=== PATIENT | male | born 1980 | race Two or more races ===

== ENCOUNTER 2016-05-08 13:43 | Emergency (ER) | payer OTHER, SELFPAY ==
[2016-05-08 13:54] VITALS: BP 133/95
--- NOTE | 2016-05-08 16:50 | EDM.PDOC ---
ED HISTORY OF PRESENT ILLNESS - General Chief Complaint: Cardiovascular Problem Stated Complaint: CHEST PAIN/ L ARM NUMB Time Seen by Provider: 05/08/16 14:02 Source of Information: Reports: Patient, RN notes reviewed - History of Present Illness INITIAL COMMENTS - FREE TEXT/NARRATIVE: 35-year-old male comes in with intermittent chest pain for the past week. He states he's been having frequent episodes for about a week. He was seen here in the ED about this 4 days ago for similar symptoms. That time he was also having palpitations and dizziness. Today it has been more of an ache of the anterior chest with some radiation to the base of his neck. He has felt lightheaded and dizzy intermittently today. He states he did wear a Holter monitor back in March a couple of months ago. This understanding that checked out okay. He denies history for hypertension diabetes or other known major medical problems. Earlier today he did have some discomfort with deep breathing. It is no better. He has not been coughing any more than usual. No fever chills nausea vomiting diaphoresis or other unusual symptomatology. - Related Data Allergies/ADRs: Allergies Allergy/AdvReac Type Severity Reaction Status Date / Time No Known Allergies Allergy Verified 04/12/16 12:23 Home Meds: Home Meds Metoprolol Succinate [Toprol XL] 25 mg PO DAILY #30 tab.er 04/12/16 [Rx] LORazepam [Ativan] 0.5 mg PO TID PRN #30 tablet 05/05/16 [Rx] Past Medical History - Past Health History Medical/Surgical History: Denies Medical/Surgical History Cardiovascular History: Reports: Hypertension Other Cardiovascular History: taking metoprolol Psychiatric History: Reports: Depression Social & Family History - Family History Family Medical History: Noncontributory - Tobacco Use Smoking Status *Q: Never Smoker Second Hand Smoke Exposure: No - Caffeine Use Caffeine Use: Reports: None - Recreational Drug Use Recreational Drug Use: No ED ROS GENERAL - Review of Systems Review Of Systems: See Below Constitutional: Denies: fever, chills, diaphoresis HEENT: Reports: No symptoms Respiratory: Reports: pleuritic chest pain (gone). Denies: shortness of breath , wheezing Cardiovascular: Reports: Chest pain (now better), Lightheadedness (mild) GI/Abdominal: Denies: Abdominal pain, Nausea, Vomiting Musculoskeletal: Reports: neck pain (chest pain radiating to the base of his neck). Denies: shoulder pain Skin: Denies: rash Neurological: Reports: dizziness (gone), numbness (left arm, gone) ED EXAM, GENERAL - Physical Exam Exam: See Below General Appearance: alert, anxious (mild) Eye Exam: bilateral eye: PERRL Nose: normal inspection Throat/Mouth: Normal inspection, Normal oropharynx Head: atraumatic. No: facial swelling Neck: supple, full range of motion Respiratory/Chest: no respiratory distress, lungs clear, normal breath sounds. No: rhonchi, wheezing, stridor Cardiovascular: regular rate, rhythm GI/Abdominal: soft, non tender Extremities: normal inspection. No: pedal edema, leg pain Neurological: alert, oriented, no motor/sensory deficits Skin Exam: Warm, Dry, Normal color EKG INTERPRETATION EKG Date: 05/08/16 Rhythm: NSR [place]: normal QRS: normal ST-T: elevated (slight, probable early repolarization) QT: normal Course - Vital Signs Last Recorded V/S: Last Vital Signs Temp 99.5 F 05/08/16 13:50 Pulse 82 05/08/16 13:50 Resp 19 05/08/16 13:50 BP 133/95 H 05/08/16 13:50 Pulse Ox 97 05/08/16 13:50 - Orders/Labs/Meds Orders: Active Orders 24 hr Category Date Time Status EKG 12 Lead [EKG Documentation Completion] [RC] STAT Care 05/08/16 14:12 Active Event Monitor [RC] .PRN Care 05/08/16 16:51 Active Chest 1V Frontal [CR] Stat Exams 05/08/16 14:13 Taken Labs: Laboratory Tests 05/08/16 05/08/16 Range/Units 13:55 13:55 WBC 9.53 H (4.23-9.07) K/mm3 RBC 5.27 (4.63-6.08) M/mm3 Hgb 15.5 (13.7-17.5) gm/L Hct 44.3 (40.1-51.0) % MCV 84.1 (79.0-92.2) fl MCH 29.4 (25.7-32.2) pg MCHC 35.0 (32.2-35.5) g/dl RDW Std Deviation 39.0 (35.1-43.9) fL Plt Count 206 (163-337) K/mm3 MPV 10.5 (9.4-12.3) fl Neut % (Auto) 58.6 (34.0-67.9) % Lymph % (Auto) 31.2 (21.8-53.1) % [place] % (Auto) 8.2 (5.3-12.2) % Eos % (Auto) 1.3 (0.8-7.0) Baso % (Auto) 0.5 (0.1-1.2) % Neut # 5.59 H (1.78-5.38) K/mm3 Lymph # 2.97 (1.32-3.57) K/mm3 [place] # 0.78 (0.30-0.82) K/mm3 Eos # 0.12 (0.04-0.54) K/mm3 Baso # 0.05 (0.01-0.08) K/mm3 Manual Slide Review Not Reportable Troponin I < 0.017 (0.00-0.056) ng/mL - Re-Assessments/Exams Free Text/Narrative Re-Assessment/Exam: 05/08/16 17:13 CBC normal troponin normal, chart reviewed from 4 days ago and it 's investigations were all relatively normal then as well, because of the dizziness he has been having and also intermittent palpitations will have him wear an event recorder for one week. He also does have a followup appointment with Heladio Orozco over on the clinic side tomorrow. Discharge instructions as documented Departure - Departure Time of Disposition: 16:45 Disposition: Home, Self-Care 01 Condition: fair Clinical Impression: Atypical chest pain Instructions: Nonspecific Chest Pain Referrals: PCP,None [Primary Care Provider] - Forms: ED Department Discharge Additional Instructions: drink plenty of water, continue metoprolol as prescribed, ibuprofen or Advil 600 mg 3 times daily, see Heladio Orozco at clinic tomorrow as planned, event recorder for one week - My Orders Last 24 Hours: My Active Orders 05/08/16 14:12 EKG 12 Lead [EKG Documentation Completion] [RC] STAT 05/08/16 14:13 Chest 1V Frontal [CR] Stat 05/08/16 16:51 Event Monitor [RC] .PRN - Assessment/Plan Last 24 Hours: My Active Orders 05/08/16 14:12 EKG 12 Lead [EKG Documentation Completion] [RC] STAT 05/08/16 14:13 Chest 1V Frontal [CR] Stat 05/08/16 16:51 Event Monitor [RC] .PRN
--- NOTE | 2016-05-10 10:01 | CR ---
Chest: Portable view of the chest was obtained. Comparison: Previous chest x-ray of 04/12/16. Heart size and mediastinum are normal. Lungs are clear. Bony structures are grossly intact. Incidental note of mild deformity of the left clavicle likely representing old healed fracture. Impression: 1. Nothing acute seen on portable chest x-ray. Diagnostic code #2
== END 2016-05-08 17:07 | disposition home or self-care (01) ==
LOC: JD.ED 13:43
DX: R07.89 Other chest pain (principal); R00.2 Palpitations; R42 Dizziness and giddiness; I10 Essential (primary) hypertension; Z79.899 Other long term (current) drug therapy
CPT/HCPCS: 36415; 71010; 71010-26; 84484; 85025; 93005; 93270; 93271; 99284; 99285-25

== ENCOUNTER 2016-05-21 13:03 | Emergency (ER) | payer OTHER, SELFPAY ==
[2016-05-21] MEDS ORDERED: methylPREDNISolone Sodium Succinate 125 MG/2 ML SDV IVPUSH ONE (13:43)
[2016-05-21] MEDS ORDERED: Ketorolac 30 MG/ML SDV IVPUSH SCH (13:45)
[2016-05-21] MEDS ORDERED: Sodium Chloride 0.9% 1,000 ML IV SCH (13:45)
--- NOTE | 2016-05-21 13:50 | EDM.PDOC ---
ED HISTORY OF PRESENT ILLNESS - General Chief Complaint: Chest Pain Stated Complaint: CHEST PAIN Time Seen by Provider: 05/21/16 13:45 Source of Information: Reports: Patient History Limitations: Reports: No limitations - History of Present Illness INITIAL COMMENTS - FREE TEXT/NARRATIVE: 36-year-old male [place] descent presents to the ED with complaints of diffuse left-sided chest pain. States he's been but plagued by recurrent bouts of sharp steady chest pain that starts in the costal margin on the left side anteriorly and radiates up anteriorly towards the left shoulder. It is sharp stabbing prickly and sometimes bleeding and burning. The suggest neurogenic source of pain. Paranasal is seen 3 times in the ED with the same type of pain with no positive findings. Some days he states it's not too bad but for the most part it's been on a daily basis. He's been seeing a chiropractor for rib had adjustment which seems to help. Denies cough or sputum production. No fever or chills. No chest wall injuries. Has broken his collarbone on the left side prior and the left humerus in the past. Currently not working because of the chest pain. Has been on anti anxiolytic meds with no relief. Symptom Onset Date: 03/10/16 Timing/Duration: Reports: Week(s):, Getting worse (symptoms are occurring on a daily basis.), Gradual onset Severity: moderate Quality: Reports: Ache, Sharp, Stabbing, Other (burning and tingling at times.) Improves with: Reports: None Worsens with: Reports: None, Movement (movement deep breathing and work does not miss them to make it better or worse.) Context, General: Denies: Activity, Exercise, Lifting, Sick contact, Trauma, Other Associated Symptoms (General): Reports: chest pain, weakness, other (johann passed out however.). 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.) - Related Data Allergies/ADRs: Allergies Allergy/AdvReac Type Severity Reaction Status Date / Time No Known Allergies Allergy Verified 05/21/16 13:16 Home Meds: Home Meds Metoprolol Succinate [Toprol XL] 25 mg PO DAILY #30 tab.er 04/12/16 [Rx] LORazepam [Ativan] 0.5 mg PO TID PRN #30 tablet 05/05/16 [Rx] Amoxicillin [Amoxicillin] 1 dose PO BID 05/21/16 [History] Clarithromycin [Biaxin] 1 tab PO BID 05/21/16 [History] Omeprazole 40 mg PO DAILY 05/21/16 [History] Prednisone [IMW: predniSONE] 20 mg PO ASDIRECTED #18 tab 05/21/16 [Rx] oxyCODONE HCl/Acetaminophen [Percocet 10-325 mg Tablet] 1 each PO Q4H PRN #15 tablet 05/21/16 [Rx] Past Medical History - Past Health History Medical/Surgical History: Denies Medical/Surgical History HEENT History: Reports: Sinusitis Cardiovascular History: Reports: Hypertension Other Cardiovascular History: taking metoprolol Gastrointestinal History: Reports: GERD, Other (see below) (BC he's currently on Biaxin amoxicillin and omeprazole started 3 days ago was only for H. pylori infection.) Psychiatric History: Reports: Anxiety, Depression Social & Family History - Family History Family Medical History: Noncontributory - Tobacco Use Smoking Status *Q: Never Smoker Second Hand Smoke Exposure: No - Caffeine Use Caffeine Use: Reports: None - Recreational Drug Use Recreational Drug Use: No - Living Situation & Occupation Occupation: unemployed ED ROS GENERAL - Review of Systems Review Of Systems: See Below Constitutional: Reports: no symptoms. Denies: fever, chills, malaise, weakness , fatigue, decreased appetite, weight loss HEENT: Reports: No symptoms Respiratory: Reports: Pleuritic Chest Pain. Denies: Shortness of Breath, Wheezing, Cough, Sputum, Hemoptysis Cardiovascular: Reports: Chest pain (left anterior chest pain), Lightheadedness , Palpitations (chest pain gets bad he feels lightheaded dizzy like he could pass out.not clear but is experiencing the palpitations). Denies: Blood pressure problem, Claudication, Dyspnea on exertion, Edema, Orthopnea Endocrine: Reports: fatigue GI/Abdominal: Reports: Other (currently being treated for H. 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 which does seem to help) Skin: Denies: no symptoms Neurological: Reports: No Symptoms Psychiatric: Reports: No symptoms ED EXAM, GENERAL - Physical Exam Exam: See Below Exam Limited By: Language barrier (mild language barrier as he is of [place] descent however he [facility] General Appearance: alert, WD/WN, anxious (mildly anxious) Eye Exam: bilateral eye: normal inspection Throat/Mouth: Normal inspection, Normal lips, Normal teeth, Normal oropharynx Head: atraumatic, normocephalic Neck: normal inspection, supple, non-tender, full range of motion. No: carotid bruit, lymphadenopathy (L), lymphadenopathy (R), thyromegaly Respiratory/Chest: no respiratory distress, lungs clear, normal breath sounds, no accessory muscle use, other (does have some mild tenderness on palpation of the left anterior chest particular rib 3 midclavicular line.) Cardiovascular: normal peripheral pulses, regular rate, rhythm, no edema, no gallop, no murmur GI/Abdominal: normal bowel sounds, soft, non tender, no organomegaly, no distention, no abnormal bruit, no mass Back Exam: normal inspection, full range of motion Extremities: normal inspection, normal range of motion, non-tender, no pedal edema, normal capillary refill Neurological: alert, oriented, CN II-XII intact, normal cognition, normal gait, normal reflexes, no motor/sensory deficits Psychiatric: normal affect, normal mood Skin Exam: Warm, Dry, Intact, Normal color, No rash EKG INTERPRETATION EKG Date: 05/21/16 Time: 13:10 Rhythm: NSR Rate (beats/min): 70 [place]: normal P-wave: present QRS: other (early R-wave transition) ST-T: other (diffuse early repolarization pattern) Comparison: no change Course - Vital Signs Last Recorded V/S: Last Vital Signs Temp 36.6 C 05/21/16 15:30 Pulse 64 05/21/16 15:30 Resp 18 05/21/16 15:30 BP 120/81 05/21/16 15:30 Pulse Ox 98 05/21/16 15:30 - Orders/Labs/Meds Orders: Active Orders 24 hr Category Date Time Status EKG Documentation Completion [RC] STAT Care 05/21/16 13:29 Active Labs: Laboratory Tests 05/21/16 05/21/16 05/21/16 Range/Units 13:15 13:15 13:15 WBC 9.91 H (4.23-9.07) K/mm3 RBC 5.59 (4.63-6.08) M/mm3 Hgb 16.2 (13.7-17.5) gm/L Hct 46.7 (40.1-51.0) % MCV 83.5 (79.0-92.2) fl MCH 29.0 (25.7-32.2) pg MCHC 34.7 (32.2-35.5) g/dl RDW Std Deviation 38.4 (35.1-43.9) fL Plt Count 220 (163-337) K/mm3 MPV 10.8 (9.4-12.3) fl Neutrophils % (Manual) 44 (40-60) % Band Neutrophils % 1 (0-10) % Lymphocytes % (Manual) 49 H (20-40) % Atypical Lymphs % 0 % Monocytes % (Manual) 2 (2-10) % Eosinophils % (Manual) 4 (0.8-7.0) % Basophils % (Manual) 0 L (0.2-1.2) Platelet Estimate Adequate RBC Morph Comment Normal ESR 10 (0-15) mm/hr Sodium 140 (136-145) mEq/L Potassium 4.0 (3.5-5.1) mEq/L Chloride 103 (98-107) mEq/L Carbon Dioxide 27 (21-32) mEq/L Anion Gap 14.0 (5-15) BUN 16 (7-18) mg/dL Creatinine 1.0 (0.7-1.3) mg/dL Est Cr Clr Drug Dosing 78.62 mL/min Estimated GFR (MDRD) > 60 (>60) mL/min BUN/Creatinine Ratio 16.0 (14-18) Glucose 133 H (74-106) mg/dL Calcium 9.2 (8.5-10.1) mg/dL Ionized Calcium 1.24 (1.12-1.32) mmol/L Total Bilirubin 0.4 (0.2-1.0) mg/dL AST 24 (15-37) U/L ALT 53 (16-63) U/L Alkaline Phosphatase 81 (46-116) U/L Troponin I 0.019 (0.00-0.056) ng/mL C-Reactive Protein < 0.2 (<1.0) mg/dL Total Protein 8.1 (6.4-8.2) g/dl Albumin 4.2 (3.4-5.0) g/dl Globulin 3.9 gm/dL Albumin/Globulin Ratio 1.1 (1-2) TSH 3rd Generation 1.354 (0.358-3.74) uIU/mL Meds: Medications Discontinued Medications Generic Name Dose Route Start Last Admin Trade Name Freq PRN Reason Stop Dose Admin Sodium Chloride 1,000 mls @ 125 mls/hr 05/21/16 13:45 05/21/16 14:03 Normal Saline IV 125 mls/hr ASDIRECTED JEREMIAS Administration Ketorolac Tromethamine 30 mg 05/21/16 13:45 05/21/16 14:09 Toradol IVPUSH 30 mg ONETIME JEREMIAS Administration Methylprednisolone Sodium Succinate 125 mg 05/21/16 13:43 05/21/16 14:04 Solu-Medrol IVPUSH 05/21/16 13:44 125 mg ONETIME ONE Administration - Radiology Interpretation Free Text/Narrative:: 36-year-old male [place] descent presents the ED for evaluation of recurrent left anterior chest pain. ECG done shows sinus rhythm at 67 per minute. There is an early R wave transition. There is a diffuse early repolarization pattern. On examination lungs are clear heart is sinus murmurs identified. Blood pressure stable at this time. He has mild chest wall pain on palpation of the left anterior chest particularly rate 3 in the midclavicular line. Overall I anticipate his pain is chest wall in origin assistance lasted much longer than one would expect. I will have routine labs collected including a sedimentation rate and CRP. Given Toradol 30 mg IV insulin over 125 mg IV.two-view chest x-ray to be done - Re-Assessments/Exams Free Text/Narrative Re-Assessment/Exam: 05/21/16 14:29 checked Heladio Orozco's notes from this hospital and patient's H. pylori and did come back IgG positive on May 15. Patient started antibiotic therapy i.e. Biaxin amoxicillin and omeprazole for this 3 days ago. He is questioning whether he needs these antibiotics. I will encourage him to finish up a course of treatment as a lot of his presentation to [facility] has been epigastric in origin.two-view chest x-ray is completely normal. One view of the head was also essentially normal. 05/21/16 15:01vision is feeling better after the Toradol 30 mg IV with less sharp steady pain. He needs to finish all his antibiotics as prescribed by Sweetie Orozco for H. pylori infection and he is in fact scheduled for an EGD which would conclude whether or not he has active infective disease and/or peptic ulcer disease. My impression is he still has chest wall pain likely of neurogenic origin. Limited on ability to use anti-inflammatories do to possible active peptic ulcer disease with recently diagnosed H. pylori infection. Otherwise meloxicam 15 mg once a day for 2-3 weeks may well have settled his inflammation in his chest.Going to place him on low-dose prednisone 20 mg twice daily for 6 days and then once daily in the morning for further 6 days in the hopes of relieving his inflammation. He will not take anti-inflammatories. I will give him a pain pill i.e. Percocet 5/325mg. Tried to reassure him at length that his heart is not part of this this pain syndrome to use when the pain is severe. Departure - Departure Time of Disposition: 15:03 Disposition: Home, Self-Care 01 Reason for Transfer *Q: Other Condition: fair Clinical Impression: Chest pain, non-cardiac, Chronic chest wall pain, Positive Helicobacter pylori serology Prescriptions: Prednisone [IMW: predniSONE] 20 mg PO ASDIRECTED #18 tab oxyCODONE HCl/Acetaminophen [Percocet 10-325 mg Tablet] 1 each PO Q4H PRN #15 tablet PRN Reason: Chest Pain Instructions: Nonspecific Chest Pain, [id number] Referrals: Heladio Orozco PA-C [Primary Care Provider] - Forms: ED Department Discharge Additional Instructions: evaluation in the emergency room today in regards to recurrence left sided anterior chest pain. Chest pain is very sharp and stabbing and makes it hard to take a full breath when the pain is severe. This in turn makes you breathe faster than normal which then in turn causes hyperventilation syndrome which makes her dizzy lightheaded and numbness and tingling in her fingers and hands and face. Chest x-ray two-view today is completely normal as is the heart tracing. There is no evidence of heart related illness. Pain is partially from chest wall and I suspect positive H. pylori infection in your stomach and food pipe is contributing a good portion to the pain syndrome as well. Therefore it is important to finish up the antibiotics that she had broke the head advise you to start a few days ago for positive H. pylori infection identified in your bloodstream. In the meantime I'm going to have you take down to zone tablet to relieve inflammation in the chest wall this is Parminder initially with breakfast and supper for 6 days and then once only in the morning for further 6 days to try and relieve the pain syndrome. Also I did prescribe a few pain pills Percocet 5/ 325 to take one tablet every 4-6 hours as needed when the chest pain is severe and sharp and stabbing. I would advise followup with endoscopy as plannedto help confirm whether or not there is an ulcer in the lower food pipe or stomach. - My Orders Last 24 Hours: My Active Orders 05/21/16 13:29 EKG Documentation Completion [RC] STAT - Assessment/Plan Last 24 Hours: My Active Orders 05/21/16 13:29 EKG Documentation Completion [RC] STAT
--- NOTE | 2016-05-21 15:13 | CR ---
Chest: Two views of the chest were obtained. Comparison: Previous chest x-ray 05/08/16. Heart size and mediastinum are within normal limits. Lungs are clear. Bony structures are unremarkable for the patient's age. Impression: 1. Nothing acute is identified on two-view chest x-ray. Diagnostic code #1
--- NOTE | 2016-05-21 15:13 | CR ---
Abdomen: Supine view of the abdomen was obtained. Comparison: No previous abdominal x-ray. Bony structures are unremarkable for the patient's age. Bowel gas pattern is normal. No abnormal calcifications or soft tissue abnormality is seen. Impression: 1. No abnormality is identified on supine abdominal x-ray. Diagnostic code #1
[2016-05-21 16:49] VITALS: BP 120/81
== END 2016-05-21 15:30 | disposition home or self-care (01) ==
LOC: JD.ED 13:03
DX: R07.89 Other chest pain (principal); A04.8 Other specified bacterial intestinal infections; I10 Essential (primary) hypertension; K21.9 Gastro-esophageal reflux disease without esophagitis; F41.8 Other specified anxiety disorders; Z79.899 Other long term (current) drug therapy
CPT/HCPCS: 36415; 71020; 74000; 80053; 82330; 84443; 84484; 85025; 85652; 86140; 93005; 96361; 96374; 96375; 99285; J1885; J2930; J7040

== ENCOUNTER 2016-05-28 19:26 | Emergency (ER) | payer OTHER, SELFPAY ==
[2016-05-28 19:43] VITALS: BP 121/100
[2016-05-28] MEDS ORDERED: Alum Hydrox/Mag Hydrox/Simeth 30 ML, Lidocaine 2% 15 ML PO STA ×2 (19:49)
--- NOTE | 2016-05-28 19:58 | EDM.PDOC ---
ED HISTORY OF PRESENT ILLNESS - General Chief Complaint: Chest Pain Stated Complaint: FEELS PAIN IN CHEST UP TO SHOULDER Time Seen by Provider: 05/28/16 19:33 Source of Information: Reports: Patient, RN notes reviewed History Limitations: Reports: No limitations - History of Present Illness INITIAL COMMENTS - FREE TEXT/NARRATIVE: The patient states that he developed a burning sensation in his epigastric region that radiates up the center of his chest and sometimes to his left shoulder yesterday, but is worse today. He also complains of dizziness and cramps in the back of his legs. Review of the medical records indicates that the patient was H. pylori positive by serology on 05/15/2016, and subsequently placed on Biaxin, amoxicillin, and omeprazole, which he states he is still taking. Further review finds that the patient was prescribed prednisone 20 mg BID x 6 days, to be followed by 20 mg daily x 6 days on 05/21/2016. The patient has had numerous presentations to the ED for chest pain. A Holter monitor 03/25/2016 demonstrated one PAC, but was otherwise unremarkable. A repeat Holter monitor on 05/08/2016 was entirely normal. His most recent ECG on demonstrated J-point elevation, but was otherwise normal. A chest radiograph from 05/21/2016 was entirely normal. Bloodwork, including a CBC, CMP , troponin, CRP, and TSH were all entirely normal on 05/21/2016. - Related Data Allergies/ADRs: Allergies Allergy/AdvReac Type Severity Reaction Status Date / Time No Known Allergies Allergy Verified 05/28/16 19:35 Home Meds: Home Meds Metoprolol Succinate [Toprol XL] 25 mg PO DAILY #30 tab.er 04/12/16 [Rx] LORazepam [Ativan] 0.5 mg PO TID PRN #30 tablet 05/05/16 [Rx] Amoxicillin [Amoxicillin] 1 dose PO BID 05/21/16 [History] Clarithromycin [Biaxin] 1 tab PO BID 05/21/16 [History] Omeprazole 40 mg PO DAILY 05/21/16 [History] Prednisone [IMW: predniSONE] 20 mg PO ASDIRECTED #18 tab 05/21/16 [Rx] oxyCODONE HCl/Acetaminophen [Percocet 10-325 mg Tablet] 1 each PO Q4H PRN #15 tablet 05/21/16 [Rx] Past Medical History Cardiovascular History: Reports: Hypertension Gastrointestinal History: Reports: GERD, Helicobacter pylori Psychiatric History: Reports: Anxiety Social & Family History - Family History Family Medical History: Noncontributory - Tobacco Use Smoking Status *Q: Former Smoker Years of Tobacco use: 2 Packs/Tins Daily: 1 Used Tobacco, but Quit: Yes Month Tobacco Last Used: february Second Hand Smoke Exposure: No - Caffeine Use Caffeine Use: Reports: None - Alcohol Use Alcohol Use History: No - Recreational Drug Use Recreational Drug Use: No - Living Situation & Occupation Living situation: Reports: single, with significant other (Girlfriend), with family (4 kids) 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) ED ROS GENERAL - Review of Systems Review Of Systems: See Below Constitutional: Reports: no symptoms HEENT: Reports: No symptoms Respiratory: Reports: No Symptoms Cardiovascular: Reports: No symptoms Endocrine: Reports: no symptoms GI/Abdominal: Reports: No symptoms : Reports: no symptoms Musculoskeletal: Reports: no symptoms Skin: Reports: no symptoms Neurological: Reports: No Symptoms Psychiatric: Reports: No symptoms Hematologic/Lymphatic: Reports: no symptoms Immunologic: Reports: no symptoms ED EXAM, GENERAL - Physical Exam Exam: See Below Exam Limited By: No limitations General Appearance: alert, WD/WN, no apparent distress Eye Exam: bilateral eye: EOMI, normal inspection Ears: normal external exam, hearing grossly normal Ear Exam: bilateral ear: auricle normal Nose: normal inspection, no blood Throat/Mouth: Normal inspection, Normal lips, Normal voice, No airway compromise Head: atraumatic, normocephalic Neck: normal inspection, full range of motion Respiratory/Chest: no respiratory distress, lungs clear, normal breath sounds, no accessory muscle use, chest non-tender Cardiovascular: normal peripheral pulses, regular rate, rhythm, no edema, no gallop, no JVD, no murmur, no rub Peripheral Pulses: 4+: radial (L), radial (R) GI/Abdominal: normal bowel sounds, soft, no organomegaly, no distention, no abnormal bruit, no mass, tender (Reproducible, in the epigastric region. Palpation induces retrosternal chest pain.) Back Exam: normal inspection, full range of motion, NT Extremities: normal inspection, normal range of motion, non-tender, normal capillary refill, no pedal edema Neurological: alert, oriented, normal cognition, no motor/sensory deficits Psychiatric: normal affect Skin Exam: Warm, Dry, Intact, Normal color, No rash Lymphatic: no adenopathy Course - Vital Signs Last Recorded V/S: Last Vital Signs Temp 36.6 C 05/28/16 19:35 Pulse 75 05/28/16 19:35 Resp 16 05/28/16 19:35 BP 121/100 H 05/28/16 19:35 Pulse Ox 98 05/28/16 19:35 - Orders/Labs/Meds Meds: Medications Discontinued Medications Generic Name Dose Route Start Last Admin Trade Name Melany PRN Reason Stop Dose Admin Al Hydroxide/Mg Hydroxide 30 0 ml 05/28/16 19:49 05/28/16 19:53 ml/ Lidocaine HCl 15 ml PO 05/28/16 19:50 45 ml ONETIME STA Administration - Re-Assessments/Exams Free Text/Narrative Re-Assessment/Exam: 05/28/16 20:07 The patient reports some improvement in his symptoms following a GI cocktail. By history and physical exam, the patient's symptoms are clearly related to GERD. The patient is currently on omeprazole as part of treatment for H. pylori , which included Biaxin. The patient is also on oral prednisone. Biaxin and prednisone can induce gastritis and worsen GERD. I don't see a clear indication for prednisone. I am going to recommend that he discontinue taking it. I don't believe the patient meets appropriate criteria for treatment of H. pylori, nevertheless, he has already been started on it, and I think it is too late for him to stop. He should probably finish the course. 05/28/16 20:19 Departure - Departure Time of Disposition: 20:19 Disposition: Home, Self-Care 01 Condition: good Clinical Impression: GERD (gastroesophageal reflux disease) Referrals: Heladio Orozco PA-C [Primary Care Provider] - Forms: ED Department Discharge Additional Instructions: You were seen in the emergency room tonight for upper abdominal pain radiating up through your chest. He received some improvement after drinking a GI cocktail. This indicates that the pain is within your esophagus and stomach. Reviewing your her medicines, we are recommending that you DISCONTINUE the prednisone. This may be contributing to your discomfort. Continue to take the remainder of her medicines as prescribed. Please followup with your PCP, Heladio Orozco, at the next available appointment, for further evaluation. If any other problems, please do not hesitate to return to the ER.
== END 2016-05-28 20:34 | disposition home or self-care (01) ==
LOC: JD.ED 19:26
DX: K21.9 Gastro-esophageal reflux disease without esophagitis (principal); I10 Essential (primary) hypertension; F41.9 Anxiety disorder, unspecified; Z79.899 Other long term (current) drug therapy; Z87.891 Personal history of nicotine dependence
CPT/HCPCS: 99284; A9270; 99283

== ENCOUNTER 2016-06-07 20:44 | Emergency (ER) | payer OTHER, SELFPAY ==
[2016-06-07 21:00] VITALS: BP 128/89
--- NOTE | 2016-06-07 21:04 | EDM.PDOC ---
ED HPI GI/ABDOMINAL - General Chief Complaint: Gastrointestinal Problem Stated Complaint: PAIN & BURNING IN CHEST AREA Time Seen by Provider: 06/07/16 21:04 Source of Information: Reports: Patient - History of Present Illness INITIAL COMMENTS - FREE TEXT/NARRATIVE: Patient has had intermittent epigastric/chest pain for several months. He has had negative cardiac evaluations in the ER. Most recently he was diagnosed with H Pylori by his PCP and was started on on triple therapy for this. Here today as epigastric pain and burning reflux have become more bothersome. He is scheduled for EGD on Friday. - Related Data Allergies/ADRs: Allergies Allergy/AdvReac Type Severity Reaction Status Date / Time No Known Allergies Allergy Verified 06/07/16 21:00 Home Meds: Home Meds Metoprolol Succinate [Toprol XL] 25 mg PO DAILY #30 tab.er 04/12/16 [Rx] Omeprazole 40 mg PO DAILY 05/21/16 [History] Hydrocodone/Acetaminophen [Lortab 5-325 mg Tablet] 1 each PO Q6HR PRN #15 tablet 06/07/16 [Rx] traMADol [Ultram] 1 tab PO BID PRN 06/07/16 [History] Past Medical History - Past Health History Medical/Surgical History: Denies Medical/Surgical History HEENT History: Reports: Sinusitis Cardiovascular History: Reports: Hypertension Other Cardiovascular History: taking metoprolol Gastrointestinal History: Reports: GERD, Helicobacter pylori Genitourinary History: Reports: None Musculoskeletal History: Reports: None Neurological History: Reports: None Psychiatric History: Reports: Anxiety Endocrine/Metabolic History: Reports: None Hematologic History: Reports: None Oncologic (Cancer) History: Reports: None Dermatologic History: Reports: None - Infectious Disease History Infectious Disease History: Reports: None Social & Family History - Family History Family Medical History: Noncontributory - Tobacco Use Smoking Status *Q: Former Smoker Years of Tobacco use: 2 Packs/Tins Daily: 1 Used Tobacco, but Quit: Yes Month Tobacco Last Used: february Second Hand Smoke Exposure: No - Caffeine Use Caffeine Use: Reports: None - Recreational Drug Use Recreational Drug Use: No - Living Situation & Occupation Living situation: Reports: single, with significant other (Girlfriend), with family (4 kids) 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 Denies: Anorexia, Black stool, Bloody stool, Difficulty swallowing, Distension, Vomiting : Reports: no symptoms Skin: Reports: no symptoms ED EXAM, GI/ABD - Physical Exam Exam: See Below Exam Limited By: No limitations General Appearance: alert, WD/WN, no apparent distress Throat/Mouth: Normal inspection, Normal oropharynx Neck: normal inspection Respiratory/Chest: no respiratory distress, lungs clear, normal breath sounds Cardiovascular: regular rate, rhythm, no murmur GI/Abdominal: normal bowel sounds, soft, tenderness (Epigastric tenderness). No : distention, guarding, McBurney's sign, Beltran's sign Psychiatric: normal affect, normal mood Skin Exam: Warm, Dry, Intact, Other (Tattoos) Course - Vital Signs Last Recorded V/S: Last Vital Signs Temp 97.2 F 06/07/16 20:56 Pulse 64 06/07/16 20:56 Resp 17 06/07/16 20:56 BP 128/89 06/07/16 20:56 Pulse Ox 98 06/07/16 20:56 - Orders/Labs/Meds Orders: Active Orders 24 hr Category Date Time Status EKG 12 Lead [EKG Documentation Completion] [RC] STAT Care 06/07/16 21:15 Active Meds: Medications Discontinued Medications Generic Name Dose Route Start Last Admin Trade Name Melany PRN Reason Stop Dose Admin Al Hydroxide/Mg Hydroxide 30 0 ml 06/07/16 21:15 06/07/16 21:30 ml/ Lidocaine HCl 15 ml PO 06/07/16 21:16 45 ml ONETIME ONE Administration Ketorolac Tromethamine 30 mg 06/07/16 22:02 06/07/16 22:08 Toradol IM 06/07/16 22:03 30 mg ONETIME ONE Administration - Re-Assessments/Exams Free Text/Narrative Re-Assessment/Exam: EKG same as previous 05/21/16. Patient had improvement in reflux symptoms and pain with GI cocktail. Continues to have chest wall pain that has been unchanged for several months per his report. He has tramadol from PCP for this, will give ketoralac injection to see if that helps. 06/07/16 22:21 Chest wall pain much improved with ketorolac, patient cannot take NSAIDs right now due to GERD symptoms. Will discharge with small amount of hydrocodone. He will FU with PCP regarding this, if it persists could consider something topically as well. Advised patient to start Nexium at HS, keep EGD appointment on Friday. 06/07/16 22:48 Departure - Departure Time of Disposition: 22:45 Disposition: Home, Self-Care 01 Condition: good Clinical Impression: Chest wall pain GERD (gastroesophageal reflux disease) Qualifiers: Esophagitis presence: esophagitis presence not specified Qualified Code(s): K21.9 - Gastro-esophageal reflux disease without esophagitis Prescriptions: Hydrocodone/Acetaminophen [Lortab 5-325 mg Tablet] 1 each PO Q6HR PRN #15 tablet PRN Reason: Pain Referrals: Heladio Orozco PA-C [Primary Care Provider] - Forms: ED Department Discharge Additional Instructions: Start OTC Nexium at bedtime. Keep your appointment for EGD on Friday. Tramadol as needed for chest wall pain, you may use hydrocodone for breakthrough pain. This will make you drowsy. Schedule follow-up with PCP next week after your EGD. - My Orders Last 24 Hours: My Active Orders 06/07/16 21:15 EKG 12 Lead [EKG Documentation Completion] [RC] STAT - Assessment/Plan Last 24 Hours: My Active Orders 06/07/16 21:15 EKG 12 Lead [EKG Documentation Completion] [RC] STAT
[2016-06-07] MEDS ORDERED: Alum Hydrox/Mag Hydrox/Simeth 30 ML, Lidocaine 2% 15 ML PO ONE ×2 (21:15)
[2016-06-07] MEDS ORDERED: Ketorolac 60 MG/2 ML SDV IM ONE (22:02)
== END 2016-06-07 22:56 | disposition home or self-care (01) ==
LOC: JD.ED 20:44
DX: R07.81 Pleurodynia (principal); Z79.899 Other long term (current) drug therapy; Z87.891 Personal history of nicotine dependence; K21.9 Gastro-esophageal reflux disease without esophagitis; I10 Essential (primary) hypertension
CPT/HCPCS: 93005; 99284; A9270; J1885; 99283

== ENCOUNTER 2016-06-12 17:54 | Emergency (ER) | payer OTHER, SELFPAY ==
[2016-06-12 18:06] VITALS: BP 131/81
[2016-06-12] MEDS ORDERED: Sodium Chloride 0.9% 10 ML Syringe FLUSH PRN (19:07)
[2016-06-12] MEDS ORDERED: Sodium Chloride 0.9% 1,000 ML IV ONE (19:08)
--- NOTE | 2016-06-12 19:45 | CT ---
Head CT Technique: Multiple axial sections through the brain were obtained. Intravenous contrast was not utilized. Comparison: No previous intracranial imaging. Findings: Ventricles along with basal cisterns and sulci over the convexities are within normal limits for the patient's age. No abnormal parenchymal densities are seen. No evidence of intracranial hemorrhage. No midline shift or mass effect is seen. Bone window settings were reviewed which shows no discrete calvarial abnormality. Defect noted within the medial left orbital wall compatible with old injury. Mucosal thickening is seen within the left maxillary sinus which is likely chronic. No acute calvarial abnormality is seen. Impression: 1. Old fracture within the medial left orbital wall. 2. Mucosal thickening which is felt to be incidental and chronic within the left maxillary sinus. 3. No acute intracranial abnormality is identified. Diagnostic code #2
--- NOTE | 2016-06-12 19:55 | EDM.PDOC ---
ED HPI GI/ABDOMINAL - General Chief Complaint: Abdominal Pain Stated Complaint: NEW MEDICATION REACTION Time Seen by Provider: 06/12/16 18:49 Source of Information: Reports: Patient, Old records (recent ER visits) History Limitations: Reports: No limitations - History of Present Illness INITIAL COMMENTS - FREE TEXT/NARRATIVE: Patient presents for evaluation and treatment of tunnel vision, dizziness, lightheadedness, fatigue and headaches. Patient states the symptoms started 3 days ago. He also reports associated symptoms of nausea and weakness. He denies any vomiting or fevers. Patient reports headache is primarily located in the back of his head. He does not have a history of headaches and states this is abnormal for him. Patient has been seen in our ER numerous occasions any chest pain over the last few months. No cardiac etiology has been identified. He is scheduled to have an EGD tomorrow. He states that on Friday he was seen for the chest pain. Started on a pain medication. He states that this is helping with the chest pain. From review of his chart it appears that he was started on hydrocordone. Patient reports that he continues to have chest discomfort and epigastric discomfort. He staets the epigastric discomfort is the worst a 4 or 5/10 is described as a cramping sensation. No change in the chest discomfort or epigastric discomfort since his previous visits. Patient denies any surgeries to his abdomen. Location: other (epigastric) Quality: Reports: cramping - Related Data Allergies/ADRs: Allergies Allergy/AdvReac Type Severity Reaction Status Date / Time No Known Allergies Allergy Verified 06/12/16 18:18 Home Meds: Home Meds Metoprolol Succinate [Toprol XL] 25 mg PO DAILY #30 tab.er 04/12/16 [Rx] Omeprazole 40 mg PO DAILY 05/21/16 [History] Hydrocodone/Acetaminophen [Lortab 5-325 mg Tablet] 1 each PO Q6HR PRN #15 tablet 06/07/16 [Rx] traMADol [Ultram] 1 tab PO BID PRN 06/07/16 [History] Past Medical History - Past Health History Medical/Surgical History: Denies Medical/Surgical History HEENT History: Reports: Sinusitis Cardiovascular History: Reports: Hypertension Other Cardiovascular History: taking metoprolol Gastrointestinal History: Reports: GERD, Helicobacter pylori Genitourinary History: Reports: None Musculoskeletal History: Reports: None Neurological History: Reports: None Psychiatric History: Reports: Anxiety Endocrine/Metabolic History: Reports: None Hematologic History: Reports: None Oncologic (Cancer) History: Reports: None Dermatologic History: Reports: None - Infectious Disease History Infectious Disease History: Reports: None Social & Family History - Family History Family Medical History: Noncontributory - Tobacco Use Smoking Status *Q: Never Smoker Years of Tobacco use: 2 Packs/Tins Daily: 1 Used Tobacco, but Quit: Yes Month Tobacco Last Used: february Second Hand Smoke Exposure: No - Caffeine Use Caffeine Use: Reports: None - Recreational Drug Use Recreational Drug Use: No - Living Situation & Occupation Living situation: Reports: single, with significant other (Girlfriend), with family (4 kids) 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 Denies: fever HEENT: Reports: Vision change (reports tunnel vision) Cardiovascular: Reports: Chest pain (no change) GI/Abdominal: Reports: Abdominal pain (epigastric, no change), Nausea. Denies: Vomiting Neurological: Reports: Dizziness, Headache. Denies: Syncope ED EXAM, GI/ABD - Physical Exam Exam: See Below Exam Limited By: No limitations General Appearance: alert, WD/WN, no apparent distress Ears: normal external exam, normal canal, hearing grossly normal, normal TMs Throat/Mouth: Normal inspection, Normal lips, Normal voice, No airway compromise Respiratory/Chest: no respiratory distress, lungs clear, normal breath sounds, other (tenderness to palpation of the costosternal junction of t4) Cardiovascular: normal peripheral pulses, regular rate, rhythm, no murmur GI/Abdominal: normal bowel sounds, soft, tenderness (epigastric). No: McBurney' s sign, Beltran's sign Neurological: alert, oriented, normal cognition Psychiatric: normal affect, normal mood Skin Exam: Warm, Dry, Normal color Course - Vital Signs Last Recorded V/S: Last Vital Signs Temp 36.4 C 06/12/16 18:02 Pulse 81 06/12/16 18:02 Resp 16 06/12/16 18:02 BP 131/81 06/12/16 18:02 Pulse Ox 98 06/12/16 18:02 Orthostatic Blood Pressure [ 124/84 Standing] Orthostatic Blood Pressure [ 123/86 Sitting] Orthostatic Blood Pressure [ 113/80 Supine] - Orders/Labs/Meds Orders: Active Orders 24 hr Category Date Time Status Orthostatic Vital Signs [RC] ASDIRECTED Care 06/12/16 19:07 Active Peripheral IV Care [RC] . DIRECTED Care 06/12/16 19:07 Active Peripheral IV Insertion Adult [OM.PC] Routine Oth 06/12/16 19:07 Ordered Labs: Laboratory Tests 06/12/16 06/12/16 06/12/16 Range/Units 19:40 19:40 19:40 WBC 7.56 (4.23-9.07) K/mm3 RBC 5.07 (4.63-6.08) M/mm3 Hgb 14.9 (13.7-17.5) gm/L Hct 41.9 (40.1-51.0) % MCV 82.6 (79.0-92.2) fl MCH 29.4 (25.7-32.2) pg MCHC 35.6 H (32.2-35.5) g/dl RDW Std Deviation 38.1 (35.1-43.9) fL Plt Count 158 L (163-337) K/mm3 MPV 10.5 (9.4-12.3) fl Neut % (Auto) 55.2 (34.0-67.9) % Lymph % (Auto) 30.8 (21.8-53.1) % Pepin % (Auto) 11.0 (5.3-12.2) % Eos % (Auto) 2.5 (0.8-7.0) Baso % (Auto) 0.4 (0.1-1.2) % Neut # (Auto) 4.17 (1.78-5.38) K/mm3 Lymph # (Auto) 2.33 (1.32-3.57) K/mm3 Pepin # (Auto) 0.83 H (0.30-0.82) K/mm3 Eos # (Auto) 0.19 (0.04-0.54) K/mm3 Baso # (Auto) 0.03 (0.01-0.08) K/mm3 D-Dimer, Quantitative 0.19 (0.19-0.59) mg/L Sodium 139 (136-145) mEq/L Potassium 3.5 (3.5-5.1) mEq/L Chloride 104 (98-107) mEq/L Carbon Dioxide 25 (21-32) mEq/L Anion Gap 13.5 (5-15) BUN 13 (7-18) mg/dL Creatinine 1.1 (0.7-1.3) mg/dL Est Cr Clr Drug Dosing 74.72 mL/min Estimated GFR (MDRD) > 60 (>60) mL/min BUN/Creatinine Ratio 11.8 L (14-18) Glucose 100 (74-106) mg/dL Calcium 8.7 (8.5-10.1) mg/dL Total Bilirubin 0.7 (0.2-1.0) mg/dL GGT 43 (15-85) U/L AST 26 (15-37) U/L ALT 48 (16-63) U/L Alkaline Phosphatase 86 (46-116) U/L Total Protein 7.1 (6.4-8.2) g/dl Albumin 3.9 (3.4-5.0) g/dl Globulin 3.2 gm/dL Albumin/Globulin Ratio 1.2 (1-2) Lipase 188 (73-393) U/L Urine Color (Yellow) Urine Appearance (Clear) Urine pH (5.0-8.0) Ur Specific [place] (1.005-1.030) Urine Protein (Negative) Urine Glucose (UA) (Negative) Urine Ketones (Negative) Urine Occult Blood (Negative) Urine Nitrite (Negative) Urine Bilirubin (Negative) Urine Urobilinogen (0.2-1.0) Ur Leukocyte Esterase (Negative) Urine RBC (0-5) /hpf Urine WBC (0-5) /hpf Ur Epithelial Cells Ur Squamous Epith Cells (0-5) /hpf Urine Bacteria (FEW) /hpf Urine Mucus (FEW) /hpf 06/12/16 Range/Units 20:30 WBC (4.23-9.07) K/mm3 RBC (4.63-6.08) M/mm3 Hgb (13.7-17.5) gm/L Hct (40.1-51.0) % MCV (79.0-92.2) fl MCH (25.7-32.2) pg MCHC (32.2-35.5) g/dl RDW Std Deviation (35.1-43.9) fL Plt Count (163-337) K/mm3 MPV (9.4-12.3) fl Neut % (Auto) (34.0-67.9) % Lymph % (Auto) (21.8-53.1) % Pepin % (Auto) (5.3-12.2) % Eos % (Auto) (0.8-7.0) Baso % (Auto) (0.1-1.2) % Neut # (Auto) (1.78-5.38) K/mm3 Lymph # (Auto) (1.32-3.57) K/mm3 Pepin # (Auto) (0.30-0.82) K/mm3 Eos # (Auto) (0.04-0.54) K/mm3 Baso # (Auto) (0.01-0.08) K/mm3 D-Dimer, Quantitative (0.19-0.59) mg/L Sodium (136-145) mEq/L Potassium (3.5-5.1) mEq/L Chloride (98-107) mEq/L Carbon Dioxide (21-32) mEq/L Anion Gap (5-15) BUN (7-18) mg/dL Creatinine (0.7-1.3) mg/dL Est Cr Clr Drug Dosing mL/min Estimated GFR (MDRD) (>60) mL/min BUN/Creatinine Ratio (14-18) Glucose (74-106) mg/dL Calcium (8.5-10.1) mg/dL Total Bilirubin (0.2-1.0) mg/dL GGT (15-85) U/L AST (15-37) U/L ALT (16-63) U/L Alkaline Phosphatase (46-116) U/L Total Protein (6.4-8.2) g/dl Albumin (3.4-5.0) g/dl Globulin gm/dL Albumin/Globulin Ratio (1-2) Lipase (73-393) U/L Urine Color Yellow (Yellow) Urine Appearance Clear (Clear) Urine pH 6.0 (5.0-8.0) Ur Specific [place] 1.020 (1.005-1.030) Urine Protein Negative (Negative) Urine Glucose (UA) Negative (Negative) Urine Ketones Trace H (Negative) Urine Occult Blood Negative (Negative) Urine Nitrite Negative (Negative) Urine Bilirubin Negative (Negative) Urine Urobilinogen 0.2 (0.2-1.0) Ur Leukocyte Esterase Negative (Negative) Urine RBC 0-5 (0-5) /hpf Urine WBC 0-5 (0-5) /hpf Ur Epithelial Cells Not Reportable Ur Squamous Epith Cells 0-5 (0-5) /hpf Urine Bacteria Rare (FEW) /hpf Urine Mucus Few (FEW) /hpf Meds: Medications Discontinued Medications Generic Name Dose Route Start Last Admin Trade Name Freq PRN Reason Stop Dose Admin Sodium Chloride 1,000 mls @ 999 mls/hr 06/12/16 19:08 06/12/16 19:33 Normal Saline IV 06/12/16 20:08 999 mls/hr ONETIME ONE Administration Ketorolac Tromethamine 30 mg 06/12/16 20:07 06/12/16 20:24 Toradol IVPUSH 06/12/16 20:08 30 mg ONETIME ONE Administration Sodium Chloride 10 ml 06/12/16 19:07 06/12/16 19:33 Saline Flush FLUSH 10 ml ASDIRECTED PRN Administration Keep Vein Open - Radiology Interpretation Free Text/Narrative:: CT head without contrast impression per Dr. Starkey: 1. Old fracture within the medial left orbital wall. 2. Mucosal thickening which is felt to be incidental and chronic within the left maxillary sinus. 3. No acute intracranial abnormality is identified. CT Results Date: 06/12/16 - Re-Assessments/Exams Free Text/Narrative Re-Assessment/Exam: 06/12/16 20:28 Labs returned. WBC is 7.56, hgb is 14.9 and plts are 158 D-dimer is normal at 0.19 Sodium is 139, potassium is 3.5 and chloride is 104. Anion gap is 13.6 Lipase is 188 AST is 26, ALt is 48, alk phos is 86, ggt is 43 Awaiting UA. Discussed labs and CT with the patient. Toradol just given. Will recheck on patient shortly. 06/12/16 21:14 UA returned. Only trace ketones. Patient feels improved after the Toradol. Will discharge him home. I recommend against taking the hydrocodone as this is likely what is causing his symptoms. He states that he is tried [id number] Tylenol and NSAIDs and tramadol does not help with his pain. He will need to decide if the side effects out weight the pain relief. I recommend he continue with his current plan and have his EGD done tomorrow as scheduled. Discharge instructions as documented. Departure - Departure Time of Disposition: 21:14 Disposition: Home, Self-Care 01 Condition: fair Clinical Impression: Medication side effect Referrals: Heladio Orozco PA-C [Primary Care Provider] - Forms: ED Department Discharge Additional Instructions: Continue with your current plan of care. The lightheadedness, headaches and dizziness are likely from the hydrocodone. I recommend you take regular tylenol instead of the hydrocodone-acetaminophen if able to avoid the side effects. Please return to the ER should your symptoms change or worsen. - My Orders Last 24 Hours: My Active Orders 06/12/16 19:07 Orthostatic Vital Signs [RC] ASDIRECTED Peripheral IV Care [RC] . DIRECTED Peripheral IV Insertion Adult [OM.PC] Routine - Assessment/Plan Last 24 Hours: My Active Orders 06/12/16 19:07 Orthostatic Vital Signs [RC] ASDIRECTED Peripheral IV Care [RC] . DIRECTED Peripheral IV Insertion Adult [OM.PC] Routine
[2016-06-12] MEDS ORDERED: Ketorolac 30 MG/ML SDV IVPUSH ONE (20:07)
== END 2016-06-12 21:27 | disposition home or self-care (01) ==
LOC: JD.ED 17:54
DX: R10.13 Epigastric pain (principal); R07.9 Chest pain, unspecified; Z79.899 Other long term (current) drug therapy; I10 Essential (primary) hypertension; K21.9 Gastro-esophageal reflux disease without esophagitis; Z87.891 Personal history of nicotine dependence
CPT/HCPCS: 36415; 70450; 80053; 81001; 82977; 83690; 85025; 85379; 96361; 96374; 99284; J1885; J7040; J7050

== ENCOUNTER 2016-07-10 08:42 | Day surgery (SDC) | payer OTHER, SELFPAY ==
--- NOTE | 2016-07-10 07:49 | PCM.PREANE ---
Preanesthetic Assessment - Anesthesia/Transfusion/Family Hx Anesthesia History: No Prior Anesthesia Family History of Anesthesia Reaction: No Transfusion History: No Prior Transfusion(s) Intubation History: Unknown - Review of Systems General: No Symptoms Pulmonary: No Symptoms Cardiovascular: No Symptoms (Cardiac work up done per patient and he states everything has turned out negative.), Chest Pain (atypical epigastric pain noted recently with symptoms noted along with increased stress level at work.), Palpitations (noted 2 months ago), Lightheadedness (noted when taking pain pill) Gastrointestinal: No symptoms (GERD) Neurological: Tingling (occasionally to left arm when epigastric pain occurred.) Other: Reports: Neck Pain, Depression, Anxiety - Physical Assessment NPO Status Date: 07/09/16 NPO Status Time: 20:30 Pulse: 73 O2 Sat by Pulse Oximetry: 96 Respiratory Rate: 16 Blood Pressure: 120/73 Temperature: 36.1 C Height: 1.6 m Weight: 93.44 kg ASA Class: 2 Mental Status: Alert & Oriented x3 Airway Class: Mallampati = 2 Dentition: Reports: Normal Dentition, Caries Thyro-Mental Finger Breadths: 3 Mouth Opening Finger Breadths: 3 ROM/Head Extension: Full Lungs: Clear to auscultation, Normal respiratory effort Cardiovascular: Regular Rate, Regular Rhythm - Lab Values: Lab values reviewed and noted, with values satisfactory to proceed with diagnostic EGD. - Imaging/EKG Impressions: EKG: sinus rhythm with no acute ischemia - Allergies Allergies/Adverse Reactions: Allergies Allergy/AdvReac Type Severity Reaction Status Date / Time No Known Allergies Allergy Verified 07/10/16 09:27 - Anesthesia Plan Pre-Op Medication Ordered: None - Acknowledgements Anesthesia Type Planned: MAC Pt an Appropriate Candidate for the Planned Anesthesia: Yes Alternatives and Risks of Anesthesia Discussed w Pt/Guardian: Yes Pt/Guardian Understands and Agrees with Anesthesia Plan: Yes PreAnesthesia Questionnaire - Past Health History Medical/Surgical History: Denies Medical/Surgical History HEENT History: Reports: None, Sinusitis Cardiovascular History: Reports: Hypertension Other Cardiovascular History: chest pressure, palpitations Respiratory History: Reports: None Gastrointestinal History: Reports: GERD, Helicobacter pylori, Other (see below) Other Gastrointestinal History: epigastric pain Genitourinary History: Reports: None 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 Musculoskeletal History: Reports: None Neurological History: Reports: None Psychiatric History: Reports: Anxiety Endocrine/Metabolic History: Reports: None, Other (see below) Other Endocrine/Metabolic History: costochronal pain, neck pain, strain of L pectoralis Hematologic History: Reports: None Immunologic History: Reports: None Oncologic (Cancer) History: Reports: None Dermatologic History: Reports: None - Infectious Disease History Infectious Disease History: Reports: None - Past Surgical History Head Surgeries/Procedures: Reports: None - SUBSTANCE USE Smoking Status *Q: Former Smoker Tobacco Use Within Last Twelve Months: No Second Hand Smoke Exposure: No Recreational Drug Use History: No - HOME MEDS Home Medications: Home Meds Omeprazole 40 mg PO DAILY 05/21/16 [History] Hydrocodone/Acetaminophen [Lortab 5-325 mg Tablet] 1 each PO Q6HR PRN #15 tablet 06/07/16 [Rx] traMADol [Ultram] 1 tab PO BID PRN 06/07/16 [History] Calcium Carbonate [Calcium] 600 mg PO DAILY 07/09/16 [History] - CURRENT (IN HOUSE) MEDS Current Meds: Current Medications Lactated Ringer's (Ringers, Lactated) 1,000 mls @ 125 mls/hr IV ASDIRECTED JEREMIAS Lidocaine/Sodium Bicarbonate (Buffered Lidocaine 1% In Ns 8.4%) 0.25 ml IV ONETIME PRN PRN Reason: Prior to IV Start Sodium Chloride (Saline Flush) 10 ml FLUSH ASDIRECTED PRN PRN Reason: Keep Vein Open
[~2016-07-10 08:42] MED LIST: Lactated Ringers 1,000 ML IV SCH; Lidocaine 1%/Sod Bicarbonate in NS 8.4% 1 ML Syringe IV PRN; Sodium Chloride 0.9% 10 ML Syringe FLUSH PRN
[2016-07-10] MEDS ORDERED: Midazolam 1 MG/ML 2 ML SDV ONE (08:47)
[2016-07-10] MEDS ORDERED: Propofol 200 MG/20 ML SDV ONE (08:47)
[2016-07-10] MEDS ORDERED: fentaNYL 100 MCG/2 ML SDV ONE (08:47)
--- NOTE | 2016-07-10 09:50 | PCM.OPNOTE ---
- General Post-Op/Procedure Note Date of Surgery/Procedure: 07/10/16 Operative Procedure(s): esophagogastroduodenoscopy with proximal and distal esophageal biopsies. Cold forceps biopsies were also performed of the antrum, and the body of the stomach X2 each. Findings: normal endoscopy Pre Op Diagnosis: 1. chronic GERD. 2. atypical chest pain Post-Op Diagnosis: normal endoscopic evaluation Anesthesia Technique: MAC, Moderate sedation Primary Surgeon: Edison Venegas Pathology: distal and proximal esophageal biopsies, along with antral and gastric biopsies EBL in mLs: 0 Complications: None Condition: Good Free Text/Narrative:: After adequate IV sedation and analgesia was obtained the patient was placed on his left side. Through a bite block a lubricated upper endoscope was inserted into the esophagus and advanced to the stomach without difficulty. The antrum was identified, followed by passing of the scope into the duodenum, which was completely normal. The antrum was without inflammatory changes as well. In the retroflexed view the fundus and cardiac, regions were normal. There was no hiatal hernia. The body of the stomach was unremarkable with normal rugal folds and grossly normal gastric motility. Because of his history I took 2 random biopsies in the antrum, and I took 2 random biopsies using cold forceps of the body of the stomach for histologic review. The scope was withdrawn to the GE junction, which was endoscopically normal. Two biopsies were taken here as well. I then withdrew the scope to the proximal esophagus, which was also normal , as well as the body. Two biopsies were taken in the proximal third. Air was removed, as I finished procedure, which he tolerated well. Housekeeping Worker photographs were taken for the patient and for the record.
--- NOTE | 2016-07-10 09:55 | PCM48HPAN ---
Post Anesthesia Note - EVALUATION WITHIN 48HRS OF ANESTHETIC Vital Signs in Normal Range: Yes Patient Participated in Evaluation: Yes Respiratory Function Stable: Yes Airway Patent: Yes Cardiovascular Function Stable: Yes Hydration Status Stable: Yes Pain Control Satisfactory: Yes Nausea and Vomiting Control Satisfactory: Yes Mental Status Recovered: Yes
[2016-07-10 10:46] VITALS: BP 104/70
== END 2016-07-10 10:35 | disposition home or self-care (01) ==
LOC: JD.SDS 08:42
PROVIDERS: ATTEND Surgery
PROC: 0DB68ZX Excision of Stomach, Via Natural or Artificial Opening Endoscopic, Diagnostic (ICD-10-PCS; principal; 2016-07-10)
DX: K29.50 Unspecified chronic gastritis without bleeding (principal); R10.13 Epigastric pain; R07.89 Other chest pain
CPT/HCPCS: 43239; 88305; J2250; J3010; J7120; J2704

== ENCOUNTER 2016-07-15 16:50 | Emergency (ER) | payer OTHER, SELFPAY ==
--- NOTE | 2016-07-15 17:15 | EDM.PDOC ---
ED HISTORY OF PRESENT ILLNESS - General Chief Complaint: Chest Pain Stated Complaint: CHEST PAIN Time Seen by Provider: 07/15/16 17:14 - History of Present Illness INITIAL COMMENTS - FREE TEXT/NARRATIVE: 36-year-old male presents emergency room with chest pain heartburn and reflux. Patient has had EGD this last week he is awaiting results of this. Patient has had worsening chest pain started yesterday. It starts out in his upper abdomen he has a burning sensation up into his chest. He's had associated pressure with this. No shortness of breath or breathing difficulties no significant radiating pain. Patient had problems with dyspepsia and reflux in the past. - Related Data Allergies/ADRs: Allergies Allergy/AdvReac Type Severity Reaction Status Date / Time No Known Allergies Allergy Verified 07/10/16 09:27 Home Meds: Home Meds Sucralfate [Carafate] 1 gm PO QIDACANDBED #30 tablet 07/15/16 [Rx] Past Medical History - Past Health History Medical/Surgical History: Denies Medical/Surgical History HEENT History: Reports: None, Sinusitis Cardiovascular History: Reports: Hypertension Other Cardiovascular History: chest pressure, palpitations Respiratory History: Reports: None Gastrointestinal History: Reports: GERD, Helicobacter pylori, Other (see below) Other Gastrointestinal History: epigastric pain Genitourinary History: Reports: None 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 Musculoskeletal History: Reports: None Neurological History: Reports: None Psychiatric History: Reports: Anxiety Endocrine/Metabolic History: Reports: None, Other (see below) Other Endocrine/Metabolic History: costochronal pain, neck pain, strain of L pectoralis Hematologic History: Reports: None Immunologic History: Reports: None Oncologic (Cancer) History: Reports: None Dermatologic History: Reports: None - Infectious Disease History Infectious Disease History: Reports: None - Past Surgical History Head Surgeries/Procedures: Reports: None GI Surgical History: Reports: EGD Social & Family History - Family History Family Medical History: Noncontributory - Tobacco Use Smoking Status *Q: Never Smoker Years of Tobacco use: 2 Packs/Tins Daily: 1 Used Tobacco, but Quit: Yes Month Tobacco Last Used: february 2016 Second Hand Smoke Exposure: No - Caffeine Use Caffeine Use: Reports: None - Recreational Drug Use Recreational Drug Use: No Drug Use in Last 12 Months: No - Living Situation & Occupation Living situation: Reports: single, with significant other (Girlfriend), with family (4 kids) 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 Denies: Black stool, Bloody stool, Hematemesis, Hematochezia, Nausea, Vomiting : Reports: no symptoms Neurological: Reports: No Symptoms ED EXAM, GENERAL - Physical Exam Exam: See Below Exam Limited By: No limitations General Appearance: alert, no apparent distress Head: atraumatic, normocephalic Neck: normal inspection, supple, non-tender, full range of motion. No: lymphadenopathy (L), lymphadenopathy (R) Respiratory/Chest: no respiratory distress, lungs clear, normal breath sounds Cardiovascular: regular rate, rhythm, no edema, no murmur GI/Abdominal: normal bowel sounds, soft, tender (he has midepigastric discomfort that he states very much mimics the discomfort he had radiating up into his chest. This also extends a little bit into the left upper quadrant.) Back Exam: normal inspection. No: CVA tenderness (L), CVA tenderness (R) Extremities: normal inspection, no pedal edema Neurological: alert, oriented, normal cognition Course - Vital Signs Last Recorded V/S: Last Vital Signs Temp 37.1 C 07/15/16 16:59 Pulse 63 07/15/16 16:59 Resp 16 07/15/16 16:59 BP 117/84 07/15/16 16:59 Pulse Ox 95 07/15/16 16:59 - Orders/Labs/Meds Orders: Active Orders 24 hr Category Date Time Status EKG 12 Lead [EKG Documentation Completion] [RC] STAT Care 07/15/16 17:23 Active Chest 1V Frontal [CR] Stat Exams 07/15/16 17:24 Taken Labs: Laboratory Tests 07/15/16 07/15/16 Range/Units 17:30 17:30 WBC 10.14 H (4.23-9.07) K/mm3 RBC 5.20 (4.63-6.08) M/mm3 Hgb 15.2 (13.7-17.5) gm/L Hct 42.6 (40.1-51.0) % MCV 81.9 (79.0-92.2) fl MCH 29.2 (25.7-32.2) pg MCHC 35.7 H (32.2-35.5) g/dl RDW Std Deviation 37.7 (35.1-43.9) fL Plt Count 191 (163-337) K/mm3 MPV 10.6 (9.4-12.3) fl Neutrophils % (Manual) 50 (40-60) % Band Neutrophils % 0 (0-10) % Lymphocytes % (Manual) 25 (20-40) % Atypical Lymphs % 18 % Monocytes % (Manual) 6 (2-10) % Eosinophils % (Manual) 0 L (0.8-7.0) % Basophils % (Manual) 1 (0.2-1.2) Platelet Estimate Adequate Plt Morphology Comment Normal RBC Morph Comment Normal Sodium 138 (136-145) mEq/L Potassium 3.9 (3.5-5.1) mEq/L Chloride 102 (98-107) mEq/L Carbon Dioxide 27 (21-32) mEq/L Anion Gap 12.9 (5-15) BUN 15 (7-18) mg/dL Creatinine 1.0 (0.7-1.3) mg/dL Est Cr Clr Drug Dosing 82.19 mL/min Estimated GFR (MDRD) > 60 (>60) mL/min BUN/Creatinine Ratio 15.0 (14-18) Glucose 89 (74-106) mg/dL Calcium 9.1 (8.5-10.1) mg/dL Total Bilirubin 0.5 (0.2-1.0) mg/dL AST 23 (15-37) U/L ALT 43 (16-63) U/L Alkaline Phosphatase 76 (46-116) U/L Troponin I 0.017 (0.00-0.056) ng/mL Total Protein 7.6 (6.4-8.2) g/dl Albumin 4.1 (3.4-5.0) g/dl Globulin 3.5 gm/dL Albumin/Globulin Ratio 1.2 (1-2) Lipase 152 (73-393) U/L Meds: Medications Discontinued Medications Generic Name Dose Route Start Last Admin Trade Name Freq PRN Reason Stop Dose Admin Al Hydroxide/Mg Hydroxide 30 0 ml 07/15/16 17:25 07/15/16 17:39 ml/ Lidocaine HCl 15 ml PO 07/15/16 17:26 45 ml ONETIME ONE Administration Sucralfate 1 gm 07/15/16 18:36 07/15/16 18:42 Carafate PO 07/15/16 18:37 1 gm Q6H STA Administration - Re-Assessments/Exams Free Text/Narrative Re-Assessment/Exam: 07/15/16 19:01 patient had significant improvement with the GI cocktail his symptoms were down about 50%. This was followed up with a dose of Carafate and he is about symptom- free at this point. Patient will be discharged on Carafate for one week. He is to followup with Dr. Venegas tomorrow. Departure - Departure Time of Disposition: 19:02 Disposition: Home, Self-Care 01 Clinical Impression: Dyspepsia, GERD (gastroesophageal reflux disease) Prescriptions: Sucralfate [Carafate] 1 gm PO QIDACANDBED #30 tablet Referrals: Heladio Orozco PA-C [Primary Care Provider] - Forms: ED Department Discharge Additional Instructions: return to the emergency room with any questions or problems. Followup with Dr. Venegas tomorrow as scheduled. You will be started on Carafate 1 g 4 times daily take just before breakfast lunch and supper and at bedtime. Take your other medications either an hour before or 2 hours after the Carafate. - My Orders Last 24 Hours: My Active Orders 07/15/16 17:23 EKG 12 Lead [EKG Documentation Completion] [RC] STAT 07/15/16 17:24 Chest 1V Frontal [CR] Stat - Assessment/Plan Last 24 Hours: My Active Orders 07/15/16 17:23 EKG 12 Lead [EKG Documentation Completion] [RC] STAT 07/15/16 17:24 Chest 1V Frontal [CR] Stat
[2016-07-15] MEDS ORDERED: Alum Hydrox/Mag Hydrox/Simeth 30 ML, Lidocaine 2% 15 ML PO ONE ×2 (17:25)
[2016-07-15] MEDS ORDERED: Sucralfate Suspension 1 GM/10 ML Cup PO STA (18:36)
[2016-07-15 19:23] VITALS: BP 118/87
--- NOTE | 2016-07-16 09:13 | CR ---
Chest: Portable view of the chest was obtained. Comparison: Previous chest x-ray of 05/21/16. Heart size and mediastinum are within normal limits. Lungs are clear. Slight deformity of the left clavicle which is compatible with old fracture. Bony structures show nothing acute. Impression: 1. Incidental finding. Nothing acute is identified on portable chest x-ray. Diagnostic code #2
== END 2016-07-15 19:20 | disposition home or self-care (01) ==
LOC: JD.ED 16:50
DX: K21.9 Gastro-esophageal reflux disease without esophagitis (principal); I10 Essential (primary) hypertension; F41.9 Anxiety disorder, unspecified; Z87.891 Personal history of nicotine dependence
CPT/HCPCS: 36415; 71010; 80053; 83690; 84484; 85025; 93005; 99285; A9270; 99283

== ENCOUNTER 2016-08-17 18:17 | Emergency (ER) | payer OTHER, SELFPAY ==
[2016-08-17 18:29] VITALS: BP 149/85
[2016-08-17] MEDS ORDERED: Ondansetron 4 MG/2 ML SDV IVPUSH ONE (18:46)
[2016-08-17] MEDS ORDERED: Alum Hydrox/Mag Hydrox/Simeth 30 ML, Lidocaine 2% 15 ML PO ONE ×2 (18:46)
[2016-08-17] MEDS ORDERED: Sodium Chloride 0.9% 10 ML Syringe FLUSH PRN (18:46)
[2016-08-17] MEDS ORDERED: Aspirin 81 MG Tab.Chew PO ONE (18:46)
--- NOTE | 2016-08-17 19:04 | EDM.PDOC ---
ED HPI GENERAL MEDICAL PROBLEM - General Chief Complaint: Chest Pain Stated Complaint: CHEST PAIN Time Seen by Provider: 08/17/16 18:38 Source of Information: Reports: Patient History Limitations: Reports: No Limitations - History of Present Illness INITIAL COMMENTS - FREE TEXT/NARRATIVE: Patient is a 36-year-old male who presents ED complaining of sudden onset of left-sided chest pain that radiates laterally to his left arm and left abdomen. States he's felt nauseated and mildly lightheaded with onset. His abdomen/ epigastric region is sore to palpation. In addition hes had 3 bowel movements today and has some blood in his last stool. He has no history of hemorrhoids. He 's had similar chest pain and upper abdomen discomfort in the past. He has been seen in the ED for similar symptoms with no definitive diagnosis. Cardiac was ruled out.Denies eating any bad or questionable food, recent out of country travel, antibiotic use,or recent sick exposure. Patient denies fever, shortness of breath, dizziness, presyncope, syncopal episodes, or any additional complaints. He has no history of DVT/PE. Patient has a history of acid reflux and has been taking Zantac 100 mg. He has no surgical history. Denies first degree relative with history of coronary artery disease. Patient is a nonsmoker. Onset: Today, Sudden Duration: Constant, Getting Worse Location: Reports: Chest, Abdomen, Upper Extremity, Left Quality: Reports: Ache, Sharp, Stabbing Severity: Moderate Improves with: Reports: None Worsens with: Reports: Eating, Movement Context: Denies: Activity, Exercise, Lifting, Sick Contact, Trauma Associated Symptoms: Reports: Chest Pain, Loss of Appetite, Malaise, Nausea/ Vomiting. 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) Chest Pain Score (Numeric/FACES): 6 - Related Data Allergies Allergy/AdvReac Type Severity Reaction Status Date / Time No Known Allergies Allergy Verified 07/10/16 09:27 Home Meds: Home Meds Ciprofloxacin HCl [Cipro] 500 mg PO BID #20 tablet 08/17/16 [Rx] Ondansetron [Zofran ODT] 4 mg PO Q6H PRN #10 tab.dis 08/17/16 [Rx] Ranitidine [Zantac] 1 tab PO DAILY 08/17/16 [History] metroNIDAZOLE [Flagyl] 500 mg PO Q12H #20 tablet 08/17/16 [Rx] Past Medical History - Past Health History Medical/Surgical History: Denies Medical/Surgical History HEENT History: Reports: None, Sinusitis Cardiovascular History: Reports: Hypertension Other Cardiovascular History: chest pressure, palpitations Respiratory History: Reports: None Gastrointestinal History: Reports: GERD, Helicobacter Pylori, Other (See Below) Other Gastrointestinal History: epigastric pain Genitourinary History: Reports: None 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 Musculoskeletal History: Reports: None Neurological History: Reports: None Psychiatric History: Reports: Anxiety Endocrine/Metabolic History: Reports: None, Other (See Below) Other Endocrine/Metabolic History: costochronal pain, neck pain, strain of L pectoralis Hematologic History: Reports: None Immunologic History: Reports: None Oncologic (Cancer) History: Reports: None Dermatologic History: Reports: None - Infectious Disease History Infectious Disease History: Reports: None - Past Surgical History Head Surgeries/Procedures: Reports: None Social & Family History - Family History Family Medical History: Noncontributory - Tobacco Use Smoking Status *Q: Never Smoker Years of Tobacco use: 2 Packs/Tins Daily: 1 Used Tobacco, but Quit: Yes Month Tobacco Last Used: february 2016 Second Hand Smoke Exposure: No - Caffeine Use Caffeine Use: Reports: Tea - Recreational Drug Use Recreational Drug Use: No Drug Use in Last 12 Months: No - Living Situation & Occupation Living situation: Reports: Single, with Significant Other, with Family Occupation: Employed ED ROS GENERAL - Review of Systems Review Of Systems: See Below Constitutional: Reports: Malaise, Decreased Appetite. Denies: Fever, Chills HEENT: Reports: No Symptoms Respiratory: Denies: Shortness of Breath, Cough, Sputum, Hemoptysis Cardiovascular: Reports: Chest Pain, Dyspnea on Exertion. Denies: Lightheadedness, Palpitations, PND, Syncope GI/Abdominal: Reports: Abdominal Pain, Bloody Stool, Decreased Appetite, Nausea. Denies: Black Stool, Constipation, Diarrhea, Hematemesis, Melena, Vomiting : Reports: No Symptoms Musculoskeletal: Denies: Back Pain Neurological: Denies: Dizziness ED EXAM, GENERAL - Physical Exam Exam: See Below Exam Limited By: No Limitations General Appearance: Alert, WD/WN, No Apparent Distress Eye Exam: Bilateral Eye: PERRL Ears: Hearing Grossly Normal Nose: Normal Inspection Throat/Mouth: Normal Inspection, Normal Oropharynx, Normal Voice, No Airway Compromise Neck: Normal Inspection, Supple Respiratory/Chest: No Respiratory Distress, Lungs Clear, Normal Breath Sounds, No Accessory Muscle Use, Other (tenderness with palpation of the left upper chest) Cardiovascular: Normal Peripheral Pulses, Regular Rate, Rhythm, No Murmur Peripheral Pulses: 2+: Radial (L), Radial (R) GI/Abdominal: Normal Bowel Sounds, Soft, No Organomegaly, No Distention, Tender (mild tenderness to the epigastric and left upper quadrant as well lower quadrant and suprapubic region with palpation) Back Exam: Normal Inspection. No: CVA Tenderness (L), CVA Tenderness (R) Extremities: Normal Inspection, Non-Tender, No Pedal Edema, Normal Capillary Refill Neurological: Alert, Oriented, CN II-XII Intact, Normal Cognition, No Motor/ Sensory Deficits Psychiatric: Normal Affect, Normal Mood Skin Exam: Warm, Dry, Intact, Normal Color Course - Vital Signs Last Recorded V/S: Last Vital Signs Temp 97.9 F 08/17/16 18:27 Pulse 73 08/17/16 18:27 Resp 20 08/17/16 18:27 BP 149/85 H 08/17/16 18:27 Pulse Ox 99 08/17/16 18:27 - Orders/Labs/Meds Orders: Active Orders 24 hr Category Date Time Status EKG 12 Lead [EKG Documentation Completion] [RC] STAT Care 08/17/16 18:27 Active Peripheral IV Care [RC] . DIRECTED Care 08/17/16 18:46 Active Abdomen Pelvis w Cont [CT] Stat Exams 08/17/16 18:45 Taken CXR [Chest 1V Frontal] [CR] Stat Exams 08/17/16 18:46 Taken UA W/MICROSCOPIC [URIN] Stat Lab 08/17/16 18:45 Uncollected Sodium Chloride 0.9% [Saline Flush] Med 08/17/16 18:46 Active 10 ml FLUSH ASDIRECTED PRN Peripheral IV Insertion Adult [OM.PC] Stat Oth 08/17/16 18:45 Ordered Medication Orders Sodium Chloride (Saline Flush) 10 ml FLUSH ASDIRECTED PRN PRN Reason: Keep Vein Open Last Admin: 08/17/16 19:20 Dose: 10 ml Labs: Laboratory Tests 08/17/16 08/17/16 Range/Units 19:20 19:20 WBC 11.49 H (4.23-9.07) K/mm3 RBC 5.30 (4.63-6.08) M/mm3 Hgb 15.5 (13.7-17.5) gm/L Hct 43.6 (40.1-51.0) % MCV 82.3 (79.0-92.2) fl MCH 29.2 (25.7-32.2) pg MCHC 35.6 H (32.2-35.5) g/dl RDW Std Deviation 39.5 (35.1-43.9) fL Plt Count 195 (163-337) K/mm3 MPV 10.4 (9.4-12.3) fl Neut % (Auto) 56.3 (34.0-67.9) % Lymph % (Auto) 32.8 (21.8-53.1) % [place] % (Auto) 9.0 (5.3-12.2) % Eos % (Auto) 1.3 (0.8-7.0) Baso % (Auto) 0.3 (0.1-1.2) % Neut # (Auto) 6.47 H (1.78-5.38) K/mm3 Lymph # (Auto) 3.77 H (1.32-3.57) K/mm3 [place] # (Auto) 1.03 H (0.30-0.82) K/mm3 Eos # (Auto) 0.15 (0.04-0.54) K/mm3 Baso # (Auto) 0.04 (0.01-0.08) K/mm3 Sodium 140 (136-145) mEq/L Potassium 3.7 (3.5-5.1) mEq/L Chloride 107 (98-107) mEq/L Carbon Dioxide 24 (21-32) mEq/L Anion Gap 12.7 (5-15) BUN 20 H (7-18) mg/dL Creatinine 1.1 (0.7-1.3) mg/dL Est Cr Clr Drug Dosing 86.80 mL/min Estimated GFR (MDRD) > 60 (>60) mL/min BUN/Creatinine Ratio 18.2 H (14-18) Glucose 107 H (74-106) mg/dL Calcium 9.0 (8.5-10.1) mg/dL Total Bilirubin 0.4 (0.2-1.0) mg/dL AST 25 (15-37) U/L ALT 57 (16-63) U/L Alkaline Phosphatase 83 (46-116) U/L Troponin I < 0.017 (0.00-0.056) ng/mL C-Reactive Protein < 0.2 (<1.0) mg/dL Total Protein 8.0 (6.4-8.2) g/dl Albumin 4.1 (3.4-5.0) g/dl Globulin 3.9 gm/dL Albumin/Globulin Ratio 1.1 (1-2) Lipase 130 (73-393) U/L Meds: Medications Generic Name Dose Route Start Last Admin Trade Name Ryanq PRN Reason Stop Dose Admin Sodium Chloride 10 ml 08/17/16 18:46 08/17/16 19:20 Saline Flush FLUSH 10 ml ASDIRECTED PRN Administration Keep Vein Open Discontinued Medications Generic Name Dose Route Start Last Admin Trade Name Ryanq PRN Reason Stop Dose Admin Aspirin 324 mg 08/17/16 18:46 08/17/16 19:00 Aspirin PO 08/17/16 18:47 324 mg ONETIME ONE Administration Al Hydroxide/Mg Hydroxide 30 0 ml 08/17/16 18:46 08/17/16 19:00 ml/ Lidocaine HCl 15 ml PO 08/17/16 18:47 45 ml ONETIME ONE Administration Diatrizoate Meglum/Diatrizoate Sod 90 ml 08/17/16 19:57 08/17/16 20:40 Gastrografin 37% PO 08/17/16 19:58 90 ml ONETIME ONE Administration Metronidazole 500 mg/ Premix 100 mls @ 100 mls/hr 08/17/16 21:21 08/17/16 21: 57 IV 08/17/16 22:20 100 mls/hr ONETIME ONE Administration Iopamidol 125 ml 08/17/16 19:57 08/17/16 20:40 Isovue-300 (61%) IVPUSH 08/17/16 19:58 125 ml ONETIME ONE Administration Ondansetron HCl 4 mg 08/17/16 18:46 08/17/16 19:20 Zofran IVPUSH 08/17/16 18:47 4 mg ONETIME ONE Administration Sodium Chloride 10 ml 08/17/16 19:57 08/17/16 20:40 Saline Flush FLUSH 08/17/16 19:58 10 ml ONETIME ONE Administration - Re-Assessments/Exams Free Text/Narrative Re-Assessment/Exam: Ordered peripheral IV, aspirin 324 mg p.o., Zofran 4 mg IVP, GI cocktail, chest x-ray, CBC, chem 14, CRP, lipase, UA, and CT abdomen and pelvis with oral and IV contrast. EKG sinus rhythm at a rate of [address] elevation anterior lateral leads with probable normal early repolarization pattern. No acute findings noted. Consistent with previous EKG obtained 07/15/16. CXR: no acute abnormalities noted. Reviewed with Dr. Daniel. Final interpretation pending. Labs reviewed: WBC 9.49, hemoglobin 15.5, c14 essentially normal, creatinine 1.1, troponin within normal limits, CRP less than 0.2, lipase 130. 08/17/16 21:18 CT the abdomen and pelvis impression: Fluid present within nondilated small bowel findings can be associated with ileus/gastroenteritis. Additional nonemergent CT findings above. Patient has had a few bowel movements today. Suspect ileus is not the likely cause of pain but gastroenteritis most likely cause. 08/17/16 21:22 Ordered flagyl 500mg IV. Flagyl completed. Will discharge patient home with instructions as documented. 08/17/16 23:06 Departure - Departure Time of Disposition: 23:07 Disposition: Home, Self-Care 01 Condition: good Clinical Impression: Atypical chest pain, Gastroenteritis Prescriptions: Ciprofloxacin HCl [Cipro] 500 mg PO BID #20 tablet Ondansetron [Zofran ODT] 4 mg PO Q6H PRN #10 tab.dis PRN Reason: Nausea metroNIDAZOLE [Flagyl] 500 mg PO Q12H #20 tablet Instructions: Nonspecific Chest Pain, [id number] Referrals: Heladio Orozco PA-C [Primary Care Provider] - Forms: ED Department Discharge Additional Instructions: Take the antibiotics as prescribed. For nausea take zofran every 4 to 6 hours. Stick with clear liquid diet for the next 48 hours advancing to low residue for additional 24 hrs and thereafter advancing to normal diet if tolerated. Take a OTC probiotic. Push the fluids. Continue taking home medications as prescribed. Followup with PCP in the next week to ensure resolution. EGD and colonoscopy maybe required. Return to the E.D. if you develop any new or worsening symptoms. For pain take tylenol. Refrain from using ibuprofen. - My Orders Last 24 Hours: My Active Orders 08/17/16 18:27 EKG 12 Lead [EKG Documentation Completion] [RC] STAT 08/17/16 18:45 Abdomen Pelvis w Cont [CT] Stat UA W/MICROSCOPIC [URIN] Stat Peripheral IV Insertion Adult [OM.PC] Stat 08/17/16 18:46 Peripheral IV Care [RC] . DIRECTED CXR [Chest 1V Frontal] [CR] Stat Sodium Chloride 0.9% [Saline Flush] 10 ml FLUSH ASDIRECTED PRN - Assessment/Plan Last 24 Hours: My Active Orders 08/17/16 18:27 EKG 12 Lead [EKG Documentation Completion] [RC] STAT 08/17/16 18:45 Abdomen Pelvis w Cont [CT] Stat UA W/MICROSCOPIC [URIN] Stat Peripheral IV Insertion Adult [OM.PC] Stat 08/17/16 18:46 Peripheral IV Care [RC] . DIRECTED CXR [Chest 1V Frontal] [CR] Stat Sodium Chloride 0.9% [Saline Flush] 10 ml FLUSH ASDIRECTED PRN
[2016-08-17] MEDS ORDERED: Iopamidol 612 MG/ML 150 ML Bottle IVPUSH ONE (19:57)
[2016-08-17] MEDS ORDERED: Diatrizoate Meglumine/Diatrizoate Sodium 37% 120 ML Bottle PO ONE (19:57)
[2016-08-17] MEDS ORDERED: Sodium Chloride 0.9% 10 ML Syringe FLUSH ONE (19:57)
[2016-08-17] MEDS ORDERED: metroNIDAZOLE/Normal Saline 500 MG in Premix Bag 1 BAG IV ONE (21:21)
--- NOTE | 2016-08-19 11:12 | CT ---
CT abdomen and pelvis Technique: Multiple axial sections were obtained from above the dome of the diaphragm inferiorly through the pubic symphysis. Intravenous and oral contrast has been given. Delayed images were also obtained through the bladder. Comparison: Previous abdominal x-ray of 05/21/16 is available. Findings: Visualized lung bases are clear. Liver shows fatty infiltration without focal abnormality. Gallbladder shows no calcified gallstones. Spleen appears within normal limits. Adrenal glands show no nodule. Pancreas is within normal limits. Kidneys show symmetric contrast enhancement without hydronephrosis or mass. Adrenal glands show no nodule. Aorta shows no aneurysmal dilatation. No retroperitoneal adenopathy or mesenteric abnormalities are seen. Appendix is seen which appears normal. No pelvic mass or adenopathy is seen. Delayed images show contrast within the distal ureters which show no dilatation. Contrast is identified within the bladder. No discrete small bowel abnormality is seen. Minimal increased stool seen within the right colon and transverse colon. Bone window settings were reviewed which appear within normal limits for the patient's age. Impression: 1. Incidental findings as noted above. Diagnostic code #2 Agree with preliminary report issued by [facility] ([facility] preliminary report dictated on 08/17/16, 10:06 PM Central Time)
--- NOTE | 2016-08-20 09:34 | CR ---
Chest: Frontal view of the chest was obtained. Comparison: Previous chest x-ray of 07/15/16. Heart size and mediastinum are normal. Lungs are clear. Bony structures are grossly intact. Impression: 1. Nothing acute is identified on frontal chest x-ray. Diagnostic code #1
== END 2016-08-17 23:05 | disposition home or self-care (01) ==
LOC: JD.ED 18:17
DX: R07.89 Other chest pain (principal); K52.9 Noninfective gastroenteritis and colitis, unspecified; I10 Essential (primary) hypertension; K21.9 Gastro-esophageal reflux disease without esophagitis
CPT/HCPCS: 36415; 71010; 74177; 80053; 83690; 84484; 85025; 86140; 93005; 96365; 96375; 99285; A9270; J2405; J7050; Q9963; Q9967; 99284

== ENCOUNTER 2016-08-20 19:50 | Emergency (ER) | payer OTHER, SELFPAY ==
[2016-08-20 20:12] VITALS: BP 140/85
--- NOTE | 2016-08-20 20:13 | EDM.PDOC ---
ED HPI GENERAL MEDICAL PROBLEM - General Chief Complaint: Abdominal Pain Stated Complaint: BURNING IN CHEST Time Seen by Provider: 08/20/16 20:13 - History of Present Illness INITIAL COMMENTS - FREE TEXT/NARRATIVE: 36-year-old male returns to emergency room with reflux and a burning sensation in his chest. The patient was seen scratch that The patient was seen here a couple of days ago started on antibiotics and he is not getting any better. Patient describes worsening epigastric discomfort and heartburn. The patient has had a history of reflux in the past and has been treated for H. pylori in the past. Patient has not had any shortness of breath. He gets some chest discomfort that is usually burning in nature when his heartburn is at its worst. Epigastric Pain Score (Numeric/FACES): 8 - Related Data Allergies Allergy/AdvReac Type Severity Reaction Status Date / Time No Known Allergies Allergy Verified 08/20/16 20:09 Home Meds: Home Meds Ciprofloxacin HCl [Cipro] 500 mg PO BID #20 tablet 08/17/16 [Rx] Ondansetron [Zofran ODT] 4 mg PO Q6H PRN #10 tab.dis 08/17/16 [Rx] metroNIDAZOLE [Flagyl] 500 mg PO Q12H #20 tablet 08/17/16 [Rx] Pantoprazole Sodium [Protonix] 40 mg PO Q24H #30 tablet. 08/20/16 [Rx] Sucralfate [Carafate] 1 gm PO QIDACANDBED #30 tablet 08/20/16 [Rx] Past Medical History - Past Health History Medical/Surgical History: Denies Medical/Surgical History HEENT History: Reports: None, Sinusitis Cardiovascular History: Reports: Hypertension Other Cardiovascular History: chest pressure, palpitations Respiratory History: Reports: None Gastrointestinal History: Reports: GERD, Helicobacter Pylori, Other (See Below) Other Gastrointestinal History: epigastric pain Genitourinary History: Reports: None [employer] History: Reports: None Musculoskeletal History: Reports: None Neurological History: Reports: None Psychiatric History: Reports: Anxiety Endocrine/Metabolic History: Reports: None, Other (See Below) Other Endocrine/Metabolic History: costochronal pain, neck pain, strain of L pectoralis Hematologic History: Reports: None Immunologic History: Reports: None Oncologic (Cancer) History: Reports: None Dermatologic History: Reports: None - Infectious Disease History Infectious Disease History: Reports: None - Past Surgical History Head Surgeries/Procedures: Reports: None Social & Family History - Family History Family Medical History: Noncontributory - Tobacco Use Smoking Status *Q: Never Smoker Years of Tobacco use: 2 Packs/Tins Daily: 1 Used Tobacco, but Quit: Yes Month Tobacco Last Used: february 2016 Second Hand Smoke Exposure: No - Caffeine Use Caffeine Use: Reports: Tea - Recreational Drug Use Recreational Drug Use: No Drug Use in Last 12 Months: No - Living Situation & Occupation Living situation: Reports: Single, with Significant Other, with Family Occupation: Employed ED ROS GENERAL - Review of Systems Review Of Systems: See Below Constitutional: Reports: No Symptoms. Denies: Fever, Chills HEENT: Reports: No Symptoms Respiratory: Reports: No Symptoms Cardiovascular: Reports: Chest Pain GI/Abdominal: Reports: Abdominal Pain (Heartburn), Nausea. Denies: Black Stool , Bloody Stool, Constipation, Diarrhea, Vomiting : Reports: No Symptoms ED EXAM, GI/ABD - Physical Exam Exam: See Below Exam Limited By: No Limitations General Appearance: Alert, No Apparent Distress Head: Atraumatic, Normocephalic Neck: Normal Inspection, Supple, Non-Tender, Full Range of Motion Respiratory/Chest: No Respiratory Distress, Lungs Clear, Normal Breath Sounds Cardiovascular: Regular Rate, Rhythm, No Edema, No Murmur GI/Abdominal: Normal Bowel Sounds, Soft, Other (Significant epigastric discomfort otherwise no significant discomfort no rebound or guarding noted) Course - Vital Signs Last Recorded V/S: Last Vital Signs Temp 36.6 C 08/20/16 20:10 Pulse 80 08/20/16 20:10 Resp 14 08/20/16 20:10 BP 140/85 08/20/16 20:10 Pulse Ox 99 08/20/16 20:10 - Orders/Labs/Meds Orders: Active Orders 24 hr Category Date Time Status Abdomen 2V AP Flat Upright [CR] Stat Exams 08/20/16 20:55 Taken Pantoprazole [ProTONIX] Med 08/21/16 22:40 Once 40 mg PO ONETIME ONE Medication Orders Pantoprazole Sodium (Protonix) 40 mg PO ONETIME ONE Stop: 08/21/16 22:41 Labs: Laboratory Tests 08/20/16 08/20/16 Range/Units 21:10 21:10 WBC 9.10 H (4.23-9.07) K/mm3 RBC 5.38 (4.63-6.08) M/mm3 Hgb 15.9 (13.7-17.5) gm/L Hct 44.3 (40.1-51.0) % MCV 82.3 (79.0-92.2) fl MCH 29.6 (25.7-32.2) pg MCHC 35.9 H (32.2-35.5) g/dl RDW Std Deviation 38.9 (35.1-43.9) fL Plt Count 185 (163-337) K/mm3 MPV 10.1 (9.4-12.3) fl Neutrophils % (Manual) 51 (40-60) % Band Neutrophils % 0 (0-10) % Lymphocytes % (Manual) 32 (20-40) % Atypical Lymphs % 8 % Monocytes % (Manual) 7 (2-10) % Eosinophils % (Manual) 2 (0.8-7.0) % Basophils % (Manual) 0 L (0.2-1.2) Platelet Estimate Adequate Plt Morphology Comment Normal RBC Morph Comment Normal Sodium 138 (136-145) mEq/L Potassium 3.4 L (3.5-5.1) mEq/L Chloride 104 (98-107) mEq/L Carbon Dioxide 26 (21-32) mEq/L Anion Gap 11.4 (5-15) BUN 18 (7-18) mg/dL Creatinine 1.0 (0.7-1.3) mg/dL Est Cr Clr Drug Dosing 95.48 mL/min Estimated GFR (MDRD) > 60 (>60) mL/min BUN/Creatinine Ratio 18.0 (14-18) Glucose 111 H (74-106) mg/dL Calcium 8.9 (8.5-10.1) mg/dL Meds: Medications Generic Name Dose Route Start Last Admin Trade Name Freq PRN Reason Stop Dose Admin Pantoprazole Sodium 40 mg 08/21/16 22:40 Protonix PO 08/21/16 22:41 ONETIME ONE Discontinued Medications Generic Name Dose Route Start Last Admin Trade Name Freq PRN Reason Stop Dose Admin Sucralfate 1 gm 08/20/16 20:55 08/20/16 21:11 Carafate PO 08/20/16 20:56 1 gm ONETIME ONE Administration - Re-Assessments/Exams Free Text/Narrative Re-Assessment/Exam: 08/20/16 22:38 Patient had improvement with Carafate. Patient will be discharged on PPI therapy and Carafate with follow-up in the clinic. He's had H. pylori in the past at this point he will need follow-up for this. Departure - Departure Time of Disposition: 22:42 Disposition: Home, Self-Care 01 Clinical Impression: Gastroesophageal reflux disease - Discharge Information Prescriptions: Pantoprazole Sodium [Protonix] 40 mg PO Q24H #30 tablet. Sucralfate [Carafate] 1 gm PO QIDACANDBED #30 tablet Referrals: Heladio Orozco, LANCE [Primary Care Provider] - Forms: ED Department Discharge Additional Instructions: Return to the emergency room with any questions or problems or worsening symptoms. You been started on Protonix take 1 daily 1 hour before your evening meal You have also been started on Carafate take this for a week one tablet 4 times a day before breakfast lunch and supper and at bedtime. Follow-up in the clinic in 1 week - My Orders Last 24 Hours: My Active Orders 08/20/16 20:55 Abdomen 2V AP Flat Upright [CR] Stat 08/21/16 22:40 Pantoprazole [ProTONIX] 40 mg PO ONETIME ONE - Assessment/Plan Last 24 Hours: My Active Orders 08/20/16 20:55 Abdomen 2V AP Flat Upright [CR] Stat 08/21/16 22:40 Pantoprazole [ProTONIX] 40 mg PO ONETIME ONE
[2016-08-20] MEDS ORDERED: Sucralfate Suspension 1 GM/10 ML Cup PO ONE (20:55)
[2016-08-20] MEDS ORDERED: Pantoprazole 40 MG Tab.CR PO ONE (22:40)
[2016-08-20] MEDS ORDERED: Pantoprazole 40 MG Tab.CR ONE (23:07)
--- NOTE | 2016-08-21 09:10 | CR ---
Abdomen: Supine and upright views of the abdomen were obtained. Comparison: No previous abdominal x-ray, previous CT abdomen and pelvis exam performed on 08/17/16 is available. Bowel gas pattern is normal. No abnormal calcifications or discrete soft tissue abnormality is seen. Bony structures appear within normal limits. Impression: 1. No abnormality is identified on two-view abdominal x-ray. Diagnostic code #1
[2016-08-21] MEDS ORDERED: Pantoprazole 40 MG Tab.CR PO ONE (22:40)
== END 2016-08-20 23:09 | disposition home or self-care (01) ==
LOC: JD.ED 19:50
DX: K21.9 Gastro-esophageal reflux disease without esophagitis (principal); I10 Essential (primary) hypertension; F41.9 Anxiety disorder, unspecified; Z87.891 Personal history of nicotine dependence
CPT/HCPCS: 36415; 74020; 80048; 85025; 99284; A9270; 99283

== ENCOUNTER 2016-08-22 17:33 | Emergency (ER) | payer OTHER, SELFPAY ==
[2016-08-22 17:44] VITALS: BP 129/81
[2016-08-22] MEDS ORDERED: Dicyclomine 10 MG Cap PO ONE (18:12)
[2016-08-22] MEDS ORDERED: Alum Hydrox/Mag Hydrox/Simeth 30 ML, Lidocaine 2% 15 ML PO ONE ×2 (18:12)
[2016-08-22] MEDS ORDERED: Sodium Chloride 0.9% 10 ML Syringe FLUSH PRN (18:13)
--- NOTE | 2016-08-22 18:28 | EDM.PDOC ---
ED HPI GENERAL MEDICAL PROBLEM - General Chief Complaint: Abdominal Pain Stated Complaint: Epigastric pain Time Seen by Provider: 08/22/16 18:00 Source of Information: Reports: Patient, Old Records, RN Notes Reviewed History Limitations: Reports: No Limitations - History of Present Illness INITIAL COMMENTS - FREE TEXT/NARRATIVE: 36 year old male presents to the ED today with complaints of epigastric and LUQ pain that radiates up into his throat and into his left chest and shoulder. He rates the pain 8/10 at this time. The pain is not associated with eating certain foods. He has been struggling with this pain since March of this year and has cut out caffeine, alcohol, coffee, and spicy foods with no relief. He had an EGD done July 10 and was diagnosed with H Pylori. He was treated and improved. However, his symptoms have worsened again over the past week. He reports shortness of breath associated with the chest pain. No cough, fever or chills. No cardiac history. He had a cardiac workup this past week which was normal. Denies pleuritic type chest pain and lower extremity edema or pain. No history of blood clots. He was in the ED two days ago and was started on carafate and protonix. He says this initially helped but is no longer helping. Middle Epigastric Pain Score (Numeric/FACES): 7 - Related Data Allergies Allergy/AdvReac Type Severity Reaction Status Date / Time No Known Allergies Allergy Verified 08/22/16 17:44 Home Meds: Home Meds Pantoprazole Sodium [Protonix] 40 mg PO Q24H #30 tablet. 08/20/16 [Rx] Sucralfate [Carafate] 1 gm PO QIDACANDBED #30 tablet 08/20/16 [Rx] Amoxicillin 1,000 mg PO BID #20 capsule 08/22/16 [Rx] Cyanocobalamin (Vitamin B-12) [Vitamin B-12] 1 tab PO DAILY 08/22/16 [History] Pantoprazole Sodium [Protonix] 40 mg PO BID #30 tablet. 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 Musculoskeletal History: Reports: None Neurological History: Reports: None Psychiatric History: Reports: Anxiety Endocrine/Metabolic History: Reports: None, Other (See Below) Other Endocrine/Metabolic History: costochronal pain, neck pain, strain of L pectoralis Hematologic History: Reports: None Immunologic History: Reports: None Oncologic (Cancer) History: Reports: None Dermatologic History: Reports: None - Infectious Disease History Infectious Disease History: Reports: None - Past Surgical History Head Surgeries/Procedures: Reports: None Social & Family History - Family History Family Medical History: Noncontributory - Tobacco Use Smoking Status *Q: Never Smoker Years of Tobacco use: 2 Packs/Tins Daily: 1 Used Tobacco, but Quit: Yes Month Tobacco Last Used: february 2016 Second Hand Smoke Exposure: No - Caffeine Use Caffeine Use: Reports: None - Recreational Drug Use Recreational Drug Use: No Drug Use in Last 12 Months: No - Living Situation & Occupation Living situation: Reports: Single, with Significant Other, with Family Occupation: Employed ED ROS GENERAL - Review of Systems Review Of Systems: See Below Constitutional: Reports: No Symptoms. Denies: Fever, Chills, Diaphoresis Respiratory: Reports: Shortness of Breath. Denies: Wheezing, Pleuritic Chest Pain, Cough, Sputum Cardiovascular: Reports: Chest Pain. Denies: Edema, Lightheadedness, Palpitations GI/Abdominal: Reports: Abdominal Pain, Nausea. Denies: Constipation, Diarrhea, Vomiting ED EXAM, GENERAL - Physical Exam Exam: See Below Exam Limited By: No Limitations General Appearance: Alert, WD/WN, Anxious, Mild Distress Respiratory/Chest: No Respiratory Distress, Lungs Clear, Normal Breath Sounds, No Accessory Muscle Use, Chest Non-Tender Cardiovascular: Normal Peripheral Pulses, Regular Rate, Rhythm, No Edema, No Murmur GI/Abdominal: Normal Bowel Sounds, Soft, Non-Tender, No Organomegaly, No Distention. No: Distended, Guarding, Rebound, Tender Extremities: Normal Inspection, Normal Range of Motion, Non-Tender, No Pedal Edema Neurological: Alert, Oriented, Normal Cognition EKG INTERPRETATION EKG Date: 08/22/16 Time: 18:08 Rhythm: NSR Rate (Beats/Min): 66 [place]: Normal P-Wave: Present QRS: Normal ST-T: Normal QT: Normal EKG Interpretation Comments: SR [address] elevation consistent with diffuse early repolarization pattern. Course - Vital Signs Last Recorded V/S: Last Vital Signs Temp 97.6 F 08/22/16 17:38 Pulse 71 08/22/16 17:38 Resp 18 08/22/16 17:38 BP 129/81 08/22/16 17:38 Pulse Ox 100 08/22/16 17:38 - Orders/Labs/Meds Orders: Active Orders 24 hr Category Date Time Status EKG 12 Lead [EKG Documentation Completion] [RC] STAT Care 08/22/16 18:16 Active Peripheral IV Care [RC] . DIRECTED Care 08/22/16 18:15 Active CXR [Chest 1V Frontal] [CR] Stat Exams 08/22/16 18:15 Taken Sodium Chloride 0.9% [Saline Flush] Med 08/22/16 18:13 Active 10 ml FLUSH ASDIRECTED PRN Peripheral IV Insertion Adult [OM.PC] Stat Oth 08/22/16 18:14 Ordered Medication Orders Sodium Chloride (Saline Flush) 10 ml FLUSH ASDIRECTED PRN PRN Reason: Keep Vein Open Last Admin: 08/22/16 18:43 Dose: 10 ml Labs: Laboratory Tests 08/22/16 08/22/16 Range/Units 18:40 18:40 WBC 9.88 H (4.23-9.07) K/mm3 RBC 5.32 (4.63-6.08) M/mm3 Hgb 15.4 (13.7-17.5) gm/L Hct 44.0 (40.1-51.0) % MCV 82.7 (79.0-92.2) fl MCH 28.9 (25.7-32.2) pg MCHC 35.0 (32.2-35.5) g/dl RDW Std Deviation 39.5 (35.1-43.9) fL Plt Count 209 (163-337) K/mm3 MPV 10.6 (9.4-12.3) fl Neut % (Auto) 51.6 (34.0-67.9) % Lymph % (Auto) 37.2 (21.8-53.1) % Leslie % (Auto) 9.4 (5.3-12.2) % Eos % (Auto) 1.4 (0.8-7.0) Baso % (Auto) 0.3 (0.1-1.2) % Neut # (Auto) 5.09 (1.78-5.38) K/mm3 Lymph # (Auto) 3.68 H (1.32-3.57) K/mm3 Leslie # (Auto) 0.93 H (0.30-0.82) K/mm3 Eos # (Auto) 0.14 (0.04-0.54) K/mm3 Baso # (Auto) 0.03 (0.01-0.08) K/mm3 Sodium 138 (136-145) mEq/L Potassium 3.6 (3.5-5.1) mEq/L Chloride 104 (98-107) mEq/L Carbon Dioxide 26 (21-32) mEq/L Anion Gap 11.6 (5-15) BUN 15 (7-18) mg/dL Creatinine 1.0 (0.7-1.3) mg/dL Est Cr Clr Drug Dosing 95.48 mL/min Estimated GFR (MDRD) > 60 (>60) mL/min BUN/Creatinine Ratio 15.0 (14-18) Glucose 104 (74-106) mg/dL Calcium 8.7 (8.5-10.1) mg/dL Total Bilirubin 0.3 (0.2-1.0) mg/dL AST 37 (15-37) U/L ALT 93 H (16-63) U/L Alkaline Phosphatase 79 (46-116) U/L Troponin I 0.018 (0.00-0.056) ng/mL Total Protein 7.7 (6.4-8.2) g/dl Albumin 4.1 (3.4-5.0) g/dl Globulin 3.6 gm/dL Albumin/Globulin Ratio 1.1 (1-2) Lipase 179 (73-393) U/L Meds: Medications Generic Name Dose Route Start Last Admin Trade Name Freq PRN Reason Stop Dose Admin Sodium Chloride 10 ml 08/22/16 18:13 08/22/16 18:43 Saline Flush FLUSH 10 ml ASDIRECTED PRN Administration Keep Vein Open Discontinued Medications Generic Name Dose Route Start Last Admin Trade Name Freq PRN Reason Stop Dose Admin Al Hydroxide/Mg Hydroxide 30 0 ml 08/22/16 18:12 08/22/16 18:43 ml/ Lidocaine HCl 15 ml PO 08/22/16 18:13 45 ml ONETIME ONE Administration Dicyclomine HCl 20 mg 08/22/16 18:12 08/22/16 18:43 Bentyl PO 08/22/16 18:13 20 mg ONETIME ONE Administration - Re-Assessments/Exams Free Text/Narrative Re-Assessment/Exam: CBC reveals mildly elevated WBC of 9.88 with normal differential. CMP is normal. Lipase normal. Troponin is WNL. Chest x-ray negative for pulmonary infiltrates or effusions. No bony abnormality. Heart size appears normal Discussed with Dr. Carter. He recommends treating the patient with antibiotics since he has a recent history of H Pylori. He recommends 3 days of Protonix BID and Zantac BID to reduce his stomach acid then start the antibiotics. These recommendations were thoroughly discussed with the patient as well as expectations. I explained that this will not resolve over night and that he needs to take the full course of antibiotics. He was prescribed Flagyl and Cipro last weekend by Chilango Diane for suspected gastroenteritis. The patient says he took the medications for 1 day but they seemed to make the symptoms worse so he stopped. Symptoms are consistent with H Pylor gastritis. He was instructed to stop the Flagyl. He was instructed to restart the Cipro and start Amoxicillin 1000mg PO BID. Refill of Protonix provided. Instructed to f/u with PCP next week. Discharge instructions as documented. Departure - Departure Time of Disposition: 19:49 Disposition: Home, Self-Care 01 Condition: Good Clinical Impression: History of Helicobacter pylori infection Gastritis Qualifiers: Gastritis type: unspecified gastritis Chronicity: acute Gastritis bleeding: without bleeding Qualified Code(s): K29.00 - Acute gastritis without bleeding - Discharge Information Prescriptions: Amoxicillin 1,000 mg PO BID #20 capsule Pantoprazole Sodium [Protonix] 40 mg PO BID #30 tablet. Referrals: Heladio Orozco PA-C [Primary Care Provider] - Forms: ED Department Discharge Additional Instructions: Medications: 1. Protonix 40mg twice a day, take 30 minutes before breakfast and at bedtime 2. Zantac 150mg twice a day, at least 2 hours before or after Protonix. 3. Amoxicillin 1000mg twice a day for a total of 10 days, take complete course 4. Ciprofloxacin 500mg twice a day until gone (this was prescribed at your previous ER visit) 5. Pepto-bismol 30ml every 4-6 hours as needed for pain 6. Tylenol 1000mg every 8 hours as needed for pain 7. STOP all other medications Avoid alcohol, caffeine, spicy foods, tomato based foods, citrus fruits Follow-up with Heladio Orozco next week Return to ER as needed - My Orders Last 24 Hours: My Active Orders 08/22/16 18:13 Sodium Chloride 0.9% [Saline Flush] 10 ml FLUSH ASDIRECTED PRN 08/22/16 18:14 Peripheral IV Insertion Adult [OM.PC] Stat 08/22/16 18:15 Peripheral IV Care [RC] . DIRECTED CXR [Chest 1V Frontal] [CR] Stat 08/22/16 18:16 EKG 12 Lead [EKG Documentation Completion] [RC] STAT - Assessment/Plan Last 24 Hours: My Active Orders 08/22/16 18:13 Sodium Chloride 0.9% [Saline Flush] 10 ml FLUSH ASDIRECTED PRN 08/22/16 18:14 Peripheral IV Insertion Adult [OM.PC] Stat 08/22/16 18:15 Peripheral IV Care [RC] . DIRECTED CXR [Chest 1V Frontal] [CR] Stat 08/22/16 18:16 EKG 12 Lead [EKG Documentation Completion] [RC] STAT
--- NOTE | 2016-08-23 10:38 | CR ---
Chest: Frontal view of the chest was obtained. Comparison: Previous chest x-ray of 08/17/16. Heart size and mediastinum are normal. Lungs are clear. Bony structures are grossly intact. Impression: 1. Nothing acute is identified on frontal chest x-ray. Diagnostic code #2
== END 2016-08-22 20:16 | disposition home or self-care (01) ==
LOC: JD.ED 17:33
DX: K29.00 Acute gastritis without bleeding (principal); Z86.19 Personal history of other infectious and parasitic diseases; I10 Essential (primary) hypertension; K21.9 Gastro-esophageal reflux disease without esophagitis; F41.9 Anxiety disorder, unspecified; Z87.891 Personal history of nicotine dependence; Z79.899 Other long term (current) drug therapy
CPT/HCPCS: 36415; 71010; 80053; 83690; 84484; 85025; 93005; 99285; A9270; J7050; 99283

== ENCOUNTER 2016-08-28 00:46 | Emergency (ER) | payer OTHER, SELFPAY ==
[2016-08-28] MEDS ORDERED: Alum Hydrox/Mag Hydrox/Simeth 30 ML, Lidocaine 2% 15 ML PO STA ×2 (01:10)
[2016-08-28 01:29] VITALS: BP 147/95
--- NOTE | 2016-08-28 01:35 | EDM.PDOC ---
ED HPI GENERAL MEDICAL PROBLEM - General Chief Complaint: General Stated Complaint: RONALDO AND SHOULDER PAINS Time Seen by Provider: 08/28/16 00:53 Source of Information: Reports: Patient, Old Records, RN Notes Reviewed History Limitations: Reports: No Limitations - History of Present Illness INITIAL COMMENTS - FREE TEXT/NARRATIVE: The patient states that he developed left upper abdominal pain, radiating through to his left chest, and around to his posterior neck, 2 days ago. He has had these symptoms numerous times in the past. He has undergone cardiac workup, Holter monitors, CT scans, evaluation for PE, and an EGD on 07/10/[address] Venegas's report indicates that the EGD was entirely normal, with no hiatal hernia, or evidence for gastritis, ulcers, or GERD. 2 biopsies were taken, which were both negative for H. pylori. Since the patient's EGD, he has returned to the ED on 07/15/16, 08/17/16, 08/20/16, 08/22/16, and again now. All workups have been negative. The patient has tested positive for H. pylori by serology in the past. Due to a concern of continued H. pylori, perhaps by inadequate treatment, the patient was prescribed Protonix, amoxicillin, ciprofloxacin, and Pepto-Bismol on his most recent ED visit on 08/22/2016. Despite this treatment, the patient's symptoms persist. The patient expects to follow-up with his PCP, Heladio Orozco, either later today or tomorrow. It is noted that the patient's oxygen saturation is 100% on room air. The patient has a history of anxiety, currently untreated. Left Shoulder Pain Score (Numeric/FACES): 8 - Related Data Allergies Allergy/AdvReac Type Severity Reaction Status Date / Time No Known Allergies Allergy Verified 08/28/16 00:59 Home Meds: Home Meds Pantoprazole Sodium [Protonix] 40 mg PO Q24H #30 tablet. 08/20/16 [Rx] Sucralfate [Carafate] 1 gm PO QIDACANDBED #30 tablet 08/20/16 [Rx] Amoxicillin 1,000 mg PO BID #20 capsule 08/22/16 [Rx] Cyanocobalamin (Vitamin B-12) [Vitamin B-12] 1 tab PO DAILY 08/22/16 [History] Pantoprazole Sodium [Protonix] 40 mg PO BID #30 tablet. 08/22/16 [Rx] Past Medical History Gastrointestinal History: Reports: Helicobacter Pylori (by serology) Psychiatric History: Reports: Anxiety Social & Family History - Family History Family Medical History: Noncontributory - Tobacco Use Smoking Status *Q: Never Smoker Second Hand Smoke Exposure: No - Caffeine Use Caffeine Use: Reports: None - Alcohol Use Alcohol Use History: Yes Date/Time of Last Drink Comment: None since February 2016 - Recreational Drug Use Recreational Drug Use: No - Living Situation & Occupation Living situation: Reports: Single, with Significant Other (Girlfriend), with Family (4 kids) 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) ED ROS GENERAL - Review of Systems Review Of Systems: See Below Constitutional: Reports: No Symptoms HEENT: Reports: Other (Posterior neck pain, as per the HPI) Respiratory: Reports: No Symptoms Cardiovascular: Reports: No Symptoms Endocrine: Reports: No Symptoms GI/Abdominal: Reports: Abdominal Pain (as per the HPI) : Reports: No Symptoms Musculoskeletal: Reports: No Symptoms Skin: Reports: No Symptoms Neurological: Reports: No Symptoms Psychiatric: Reports: Anxiety Hematologic/Lymphatic: Reports: No Symptoms Immunologic: Reports: No Symptoms ED EXAM, GENERAL - Physical Exam Exam: See Below Exam Limited By: No Limitations General Appearance: Alert, WD/WN, Anxious Eye Exam: Bilateral Eye: Normal Inspection Ears: Normal External Exam, Hearing Grossly Normal Nose: Normal Inspection, Normal Mucosa, No Blood Throat/Mouth: Normal Inspection, Normal Lips, Normal Voice, No Airway Compromise Head: Atraumatic, Normocephalic Neck: Normal Inspection, Supple, Non-Tender, Full Range of Motion Respiratory/Chest: No Respiratory Distress, Lungs Clear, Normal Breath Sounds, No Accessory Muscle Use, Chest Non-Tender Cardiovascular: Normal Peripheral Pulses, Regular Rate, Rhythm, No Gallop, No JVD, No Murmur, No Rub Peripheral Pulses: 4+: Radial (L), Radial (R) GI/Abdominal: Normal Bowel Sounds, Soft, Non-Tender, No Organomegaly, No Distention, No Abnormal Bruit, No Mass (Male) Exam: Deferred Rectal (Males) Exam: Deferred Back Exam: Normal Inspection, Full Range of Motion, NT Extremities: Normal Inspection, Normal Range of Motion, No Pedal Edema, Normal Capillary Refill Neurological: Alert, Oriented, Normal Cognition, No Motor/Sensory Deficits Psychiatric: Normal Affect, Anxious Skin Exam: Warm, Dry, Intact, Normal Color, No Rash Lymphatic: No Adenopathy Course - Vital Signs Last Recorded V/S: Last Vital Signs Temp 36.2 C 08/28/16 00:52 Pulse 71 08/28/16 00:52 Resp 18 08/28/16 00:52 BP 147/95 H 08/28/16 00:52 Pulse Ox 99 08/28/16 00:52 - Orders/Labs/Meds Meds: Medications Discontinued Medications Generic Name Dose Route Start Last Admin Trade Name Melany PRN Reason Stop Dose Admin Al Hydroxide/Mg Hydroxide 30 0 ml 08/28/16 01:10 08/28/16 01:16 ml/ Lidocaine HCl 15 ml PO 08/28/16 01:11 45 ml ONETIME STA Administration - Re-Assessments/Exams Free Text/Narrative Re-Assessment/Exam: 08/28/16 01:30 While the patient's H. pylori serology test has been positive in the past, this only indicates prior exposure to H. pylori, not active infection. This is why the H. pylori by serology test is not recommended. The patient underwent EGD on 07/10/[address] Venegas. 2 biopsies were obtained , both of which were negative for H. pylori. He has been treated for H. pylori numerous times in the past. Clearly, the patient does not have H. pylori, and his symptoms are not due to gastritis, peptic ulcer disease, or GERD, as there was no evidence of that on his EGD. I am going to recommend discontinuation of his treatment for H. pylori. They are simply not necessary. Given his numerous negative workup, I suspect that the patient's symptoms are not organic in etiology, rather, likely related to his anxiety. The patient's anxiety was previously treated with Ativan, however, the patient states that the Ativan seemed to make his symptoms worse, therefore this was discontinued. As far as I can tell, the patient has not previously been treated with an SSRI. As SSRIs typically take a few weeks before they become effective, and during that time dosage changes may need to be done, and the patient monitored for adverse side effects, these are not medicines prescribed from the ED. I am recommended the patient discuss starting an SSRI or similar medication with his PCP, Heladio Orozco. Departure - Departure Time of Disposition: 01:31 Disposition: Home, Self-Care 01 Condition: Fair Clinical Impression: Hyperventilation syndrome, Anxiety - Discharge Information Referrals: Heladio Orozco PA-C [Primary Care Provider] - Forms: ED Department Discharge Additional Instructions: You were seen in the emergency room for continued left upper abdominal pain, radiating to your left chest, and to the back of your neck. Your H. pylori serology test has been positive in the past, but this only indicates that you have had previous exposure to H. pylori. It does not mean that you are currently infected with H. pylori. You have been treated for H. pylori several times. It is very rare to reacquire H. pylori, once treated. The EGD you underwent on 07/10/2016 was completely normal. You do not have acid reflux, gastritis, or ulcers. Additionally, 2 biopsies were taken which were specifically tested for H. pylori. You DO NOT have H. pylori. Because you do not have H. pylori, you do not need to continue to take medicines to treat H. pylori. We are recommending that you STOP taking the protonix, amoxicillin, ciprofloxacin, and Pepto-Bismol. You may continue to take the Zantac. In the ER, we found that you were hyperventilating. We feel that your abdominal pain, chest pain, and neck pain are MOST LIKELY due to anxiety. We recommend you talk to your PCP, Heladio Orozco, about starting a long-term anti- anxiety medicine, such as Zoloft, Paxil, Lexapro, or something similar. Be aware that these medicines typically take a few weeks before they become effective. You will likely continue to have abdominal, chest, and neck pain until the medicine becomes effective. You will need to be patient. If any other problems, please do not hesitate to return to the ER.
== END 2016-08-28 01:56 | disposition home or self-care (01) ==
LOC: JD.ED 00:46
DX: F45.8 Other somatoform disorders (principal); F41.9 Anxiety disorder, unspecified
CPT/HCPCS: 99283; A9270

== ENCOUNTER 2016-11-15 18:32 | Emergency (ER) | payer OTHER, SELFPAY ==
[2016-11-15 18:54] VITALS: BP 140/93
--- NOTE | 2016-11-15 19:02 | EDM.PDOC ---
ED HPI GENERAL MEDICAL PROBLEM - General Chief Complaint: Chest Pain Stated Complaint: DIZZY,RACING HEART,LEFT ARM PAIN Time Seen by Provider: 11/15/16 18:53 Source of Information: Reports: Patient History Limitations: Reports: No Limitations - History of Present Illness INITIAL COMMENTS - FREE TEXT/NARRATIVE: 36-year-old male presents to the ED with complaints of recurrent bouts of tachycardia where he can feel his heart racing in his chest associated dyspnea shortness of breath and pain in radiating to his left anterior chest into his shoulder and paresthesias down the left arm. This is occurred 3 times a day for no apparent reason. He's had intermittent left precordial chest pains usually sharp and stabbing for many months never associated racing heart. He is not aware of any obvious major stressors or reasons to be anxious. Denies cough or sputum production. Denies fever or chills. No chest wall injuries. He does not drink any diet Mario drinks or stimulant drinks. Onset: Today (Has had 3 separate bouts of tachycardia where he undergo and lay down for a period of time with associated shortness of breath and dizziness.) Onset Date: 11/15/16 Duration: Hour(s): (First time was about 9:00 this morning.) Location: Reports: Chest, Other Quality: Reports: Stabbing (Pain in the chest is sharp and stabbing left upper precordial chest.), Other Severity: Moderate (Intermittent) Improves with: Reports: None Worsens with: Reports: None Context: Reports: Other (As always occurred at rest.). Denies: Activity, Exercise, Lifting, Sick Contact, Trauma Associated Symptoms: Reports: Chest Pain, Malaise, Shortness of Breath, Weakness. 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 left chest, left arm, neck, left abdomen Pain Score (Numeric/FACES): 4 - Related Data Allergies Allergy/AdvReac Type Severity Reaction Status Date / Time No Known Allergies Allergy Verified 11/15/16 18:54 Home Meds: Home Meds LORazepam [Ativan] 1 mg PO Q8H PRN #10 tablet 11/15/16 [Rx] Past Medical History - Past Health History Medical/Surgical History: Denies Medical/Surgical History HEENT History: Reports: None, Sinusitis Cardiovascular History: Reports: Hypertension Other Cardiovascular History: chest pressure, palpitations Respiratory History: Reports: None Gastrointestinal History: Reports: Helicobacter Pylori (by serology) Other Gastrointestinal History: epigastric pain Genitourinary History: Reports: None 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 Musculoskeletal History: Reports: None Neurological History: Reports: None Psychiatric History: Reports: Anxiety Endocrine/Metabolic History: Reports: None, Other (See Below) Other Endocrine/Metabolic History: costochronal pain, neck pain, strain of L pectoralis Hematologic History: Reports: None Immunologic History: Reports: None Oncologic (Cancer) History: Reports: None Dermatologic History: Reports: None - Infectious Disease History Infectious Disease History: Reports: None - Past Surgical History Head Surgeries/Procedures: Reports: None Social & Family History - Family History Family Medical History: Noncontributory - Tobacco Use Smoking Status *Q: Never Smoker Years of Tobacco use: 2 Packs/Tins Daily: 1 Used Tobacco, but Quit: Yes Month Tobacco Last Used: february 2016 Second Hand Smoke Exposure: No - Caffeine Use Caffeine Use: Reports: None - Recreational Drug Use Recreational Drug Use: No Drug Use in Last 12 Months: No - Living Situation & Occupation Living situation: Reports: Single, with Significant Other (Girlfriend), with Family (4 kids) 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 Denies: Fever, Chills, Decreased Appetite, Weight Loss HEENT: Reports: No Symptoms Respiratory: Reports: Shortness of Breath, Pleuritic Chest Pain (Left anterior chest pain which is sharp and stabbing.). Denies: Wheezing, Cough, Sputum, Hemoptysis, Other Cardiovascular: Reports: Chest Pain, Dyspnea on Exertion, Lightheadedness, Palpitations (When he is heart is racing.). Denies: Blood Pressure Problem, Claudication (See history present illness), Edema, Orthopnea Endocrine: Reports: No Symptoms GI/Abdominal: Reports: Nausea : Reports: No Symptoms Musculoskeletal: Reports: Other Skin: Reports: No Symptoms (Left anterior chest wall pain.) Neurological: Reports: Dizziness, Paresthesia (Especially in his left upper extremity down to his hand.), Other (Heart up to sort out his dizziness like I going to pass out versus some component of the room spinning.). Denies: Headache, Numbness, Pre-Existing Deficit, Seizure, Syncope, Tingling Psychiatric: Reports: Anxiety Hematologic/Lymphatic: Denies: No Symptoms Immunologic: Denies: No Symptoms ED EXAM, GENERAL - Physical Exam Exam: See Below Exam Limited By: No Limitations General Appearance: Alert, WD/WN, Anxious, Moderate Distress Eye Exam: Bilateral Eye: Normal Inspection Ears: Normal External Exam, Normal TMs Throat/Mouth: Normal Inspection, Normal Lips, Normal Teeth, Normal Oropharynx Head: Atraumatic, Normocephalic Neck: Normal Inspection, Supple, Non-Tender, Full Range of Motion. No: Lymphadenopathy (L), Lymphadenopathy (R), Thyromegaly Respiratory/Chest: No Respiratory Distress, Lungs Clear, No Accessory Muscle Use Cardiovascular: Normal Peripheral Pulses, Regular Rate, Rhythm, No Edema, No Murmur Peripheral Pulses: 3+: Posterior Tibial (L), Posterior Tibial (R), Dorsalis Pedis (L), Dorsalis Pedis (R) GI/Abdominal: Normal Bowel Sounds, Soft, Non-Tender, No Organomegaly, No Distention Back Exam: Normal Inspection, Full Range of Motion. No: CVA Tenderness (L), CVA Tenderness (R) Extremities: Normal Inspection, Normal Range of Motion, Non-Tender, No Pedal Edema, Normal Capillary Refill Neurological: Alert, Oriented, CN II-XII Intact, Normal Cognition, Normal Gait, Normal Reflexes, No Motor/Sensory Deficits Psychiatric: Normal Mood, Anxious Skin Exam: Warm, Dry, Intact, Normal Color, No Rash EKG INTERPRETATION EKG Date: 11/15/16 Time: 18:45 Rate (Beats/Min): 85 Kathleen: Normal P-Wave: Present QRS: Other (Early R-wave transition.) ST-T: Normal QT: Normal EKG Interpretation Comments: Essentially normal ECG. Course - Vital Signs Last Recorded V/S: Last Vital Signs Temp 36.3 C 11/15/16 18:51 Pulse 85 11/15/16 18:51 Resp 18 11/15/16 18:51 BP 140/93 H 11/15/16 18:51 Pulse Ox 100 11/15/16 18:51 - Orders/Labs/Meds Orders: Active Orders 24 hr Category Date Time Status EKG Documentation Completion [RC] STAT Care 11/15/16 18:54 Active Holter Monitor 48 Hours [RC] .PRN Care 11/15/16 20:17 Active Chest 1V Frontal [CR] Stat Exams 11/15/16 19:02 Taken Sodium Chloride 0.9% [Normal Saline] 1,000 ml Med 11/15/16 19:15 Active IV ASDIRECTED Medication Orders Sodium Chloride (Normal Saline) 1,000 mls @ 500 mls/hr IV ASDIRECTED JEREMIAS Last Admin: 11/15/16 19:12 Dose: 500 mls/hr Labs: Laboratory Tests 11/15/16 11/15/16 Range/Units 18:45 18:45 WBC 10.76 H (4.23-9.07) K/mm3 RBC 5.41 (4.63-6.08) M/mm3 Hgb 15.8 (13.7-17.5) gm/L Hct 44.3 (40.1-51.0) % MCV 81.9 (79.0-92.2) fl MCH 29.2 (25.7-32.2) pg MCHC 35.7 H (32.2-35.5) g/dl RDW Std Deviation 38.9 (35.1-43.9) fL Plt Count 190 (163-337) K/mm3 MPV 10.9 (9.4-12.3) fl Neutrophils % (Manual) 41 (40-60) % Band Neutrophils % 0 (0-10) % Lymphocytes % (Manual) 52 H (20-40) % Atypical Lymphs % 0 % Monocytes % (Manual) 6 (2-10) % Eosinophils % (Manual) 1 (0.8-7.0) % Basophils % (Manual) 0 L (0.2-1.2) Platelet Estimate Adequate Plt Morphology Comment Normal RBC Morph Comment Normal Sodium 140 (136-145) mEq/L Potassium 3.3 L (3.5-5.1) mEq/L Chloride 103 (98-107) mEq/L Carbon Dioxide 26 (21-32) mEq/L Anion Gap 14.3 (5-15) BUN 23 H (7-18) mg/dL Creatinine 1.2 (0.7-1.3) mg/dL Est Cr Clr Drug Dosing 82.33 mL/min Estimated GFR (MDRD) > 60 (>60) mL/min BUN/Creatinine Ratio 19.2 H (14-18) Glucose 112 H (74-106) mg/dL Calcium 9.6 (8.5-10.1) mg/dL Magnesium 2.0 (1.8-2.4) mg/dl Total Bilirubin 0.5 (0.2-1.0) mg/dL AST 34 (15-37) U/L ALT 82 H (16-63) U/L Alkaline Phosphatase 73 (46-116) U/L CK-MB (CK-2) 1.8 (0-3.6) ng/ml Troponin I < 0.017 (0.00-0.056) ng/mL C-Reactive Protein < 0.2 (<1.0) mg/dL Total Protein 8.4 H (6.4-8.2) g/dl Albumin 4.4 (3.4-5.0) g/dl Globulin 4.0 gm/dL Albumin/Globulin Ratio 1.1 (1-2) TSH 3rd Generation 1.804 (0.358-3.74) uIU/mL Meds: Medications Generic Name Dose Route Start Last Admin Trade Name Freq PRN Reason Stop Dose Admin Sodium Chloride 1,000 mls @ 500 mls/hr 11/15/16 19:15 11/15/16 19:12 Normal Saline IV 500 mls/hr ASDIRECTED JEREMIAS Administration Discontinued Medications Generic Name Dose Route Start Last Admin Trade Name Freq PRN Reason Stop Dose Admin Lorazepam 0.5 mg 11/15/16 19:04 11/15/16 19:12 Ativan IVPUSH 11/15/16 19:05 0.5 mg ONETIME ONE Administration - Radiology Interpretation Free Text/Narrative:: 36-year-old male of [place] ancestry presents to the ED with left precordial chest pains which are sharp and stabbing. Intermittent bouts of severe palpitations or tachycardia 3 times today so she with development of lightheadedness dizziness and shortness of breath. Per seizures in the left hand. Most of these episodes occurred at rest without being at work or for any other reason. He denies any use of street drugs or stimulants such as red BULL etc. On no medications except for vitamins once daily. Examination is completely normal. My initial impression is anxiety as a source of his recurrent attacks. Plan ECG chest x-ray labs to include TSH to be done. Possible need to place him on Holter monitor for the weekend. - Re-Assessments/Exams Free Text/Narrative Re-Assessment/Exam: 11/15/16 20:07 1 view chest x-ray is completely normal. Lab work shows a white count of 10.76 with a normal differential 41% neutrophils. Hemoglobin is 15.8 hematocrit is 44.3 platelets are normal at 190,000. Sodium is 140 potassium is slightly low at 3.3. And a gap is 14.3 be when his 23 glucose was 112. TSH is 1.804 normal AST is 34 ALT is 82. Cardiac markers are all normal. My overall impression is that this is anxiety related. I'm going to have him on placed on a Holter monitor for the next 48 hours to see if we can identify true palpitations. I'm going to give him Ativan 1 mg tablet to be taken at the onset of the next type of attack to see if it alleviates it. He seems to be quite distressed by these episodes but since it's only been 1 day of significant tachyarrhythmias I'm reluctant to place him on long-term antianxiety relief medication such as citalopram etc. 11/15/16 20:18 HE is okay with wearing a Holter monitor for the weekend. He does have to work. Advised and we will give him 5 tablets of Ativan to be used if he develops similar type symptoms but if he has to take the tablet he has to. Will go home because it has the potential to cause significant sedation. Holter monitor is available and he will therefore have it fitted. Results will be sent to Heladio Orozco his usual care provider. Patient was advised to make a follow-up appointment about 2-3 days after the Holter monitor has been turned in for the results. Departure - Departure Time of Disposition: 20:45 Disposition: Home, Self-Care 01 Condition: Fair Clinical Impression: Non-cardiac chest pain, Intermittent palpitations Prescriptions: LORazepam [Ativan] 1 mg PO Q8H PRN #10 tablet PRN Reason: relief of palpitations Instructions: Nonspecific Chest Pain, [id number], Palpitations Referrals: Heladio Orozco PA-C [Primary Care Provider] - Forms: ED Department Discharge Additional Instructions: Evaluation in the emergency room today in regards to recurrent bouts of racing heart associated with dizziness and shortness of breath that occurred 3 times today. Associated left upper anterior chest pain radiating down to the left arm with some numbness and tingling. I believe the left upper extremity discomfort was secondary to hyperventilation syndrome since her feeling so short of breath. All of the tests done in the emergency room today are normal. There is no evidence of any heart related illness. Thyroid gland function is normal. No other abnormalities were appreciated in your lab tests. Because of the palpitations I'm going to have you were a ECG monitor called a Holter monitor for the next 2 days to see if we can picker tender racing heart intermittently. My overall impression is that you're suffering from generalized anxiety disorder with panic attack which comes on suddenly for no reason causing her to heart to race skip and a strong sense of shortness of breath and perhaps even a sense of doom when it occurs. Have no control over when this might occur. It can be a response to pain as you indicate left upper chest pain occurs intermittently which could make you then hyperventilate become more short of breath and developed left upper extremity numbness and tingling etc. Chest pain is likely chest wall in origin with muscle spasms between the ribs. No other abnormalities were appreciated on x-ray of the ribs and chest wall. Suggest wearing the Holter monitor over the weekend and returning to the hospital on Friday evening. It was then read by a computer and the results are usually available 2-3 days later. I did write a prescription for Ativan 1 mg strength that you can take at the onset of similar type event if needed. However medication usually causes some degree of sedation and usually you should go home if you take the tablet. Not operate a motor vehicle or machinery etc. The norman is whether or not it alleviates the symptoms within 20-30 minutes. This would suggest that it is a panic attack and there is better medication that you can take daily to prevent similar attacks recurring if they are recurring often enough. Suggest follow-up with her personal physician in 2-3 days after the Holter monitor has been turned in for evaluation. All the results will be sent to Heladio Orozco please make an appointment with him for follow-up. - My Orders Last 24 Hours: My Active Orders 11/15/16 18:54 EKG Documentation Completion [RC] STAT 09/08/17 19:02 Chest 1V Frontal [CR] Stat 11/15/16 19:15 Sodium Chloride 0.9% [Normal Saline] 1,000 ml IV ASDIRECTED 11/15/16 20:17 Holter Monitor 48 Hours [RC] .PRN - Assessment/Plan Last 24 Hours: My Active Orders 11/15/16 18:54 EKG Documentation Completion [RC] STAT 11/15/16 19:02 Chest 1V Frontal [CR] Stat 11/15/16 19:15 Sodium Chloride 0.9% [Normal Saline] 1,000 ml IV ASDIRECTED 11/15/16 20:17 Holter Monitor 48 Hours [RC] .PRN
[2016-11-15] MEDS ORDERED: LORazepam 2 MG/ML MDV IVPUSH ONE (19:04)
[2016-11-15] MEDS ORDERED: Sodium Chloride 0.9% 1,000 ML IV SCH (19:15)
--- NOTE | 2016-11-18 08:58 | CR ---
Chest: Portable view of the chest was obtained. Comparison: Previous chest x-ray of 08/22/16. Heart size and mediastinum are within normal limits. Lungs are clear. Bony structures show an old healed left clavicle fracture. Impression: 1. Nothing acute is appreciated on portable chest x-ray. Diagnostic code #2
== END 2016-11-15 21:18 | disposition home or self-care (01) ==
LOC: JD.ED 18:32
DX: R07.89 Other chest pain (principal); R00.2 Palpitations; I10 Essential (primary) hypertension
CPT/HCPCS: 36415; 71010; 80053; 82553; 83735; 84443; 84484; 85025; 86140; 93005; 93225; 93226; 96361; 96374; 99285; J2060; J7040

== ENCOUNTER 2019-08-22 10:59 | Emergency (ER) | payer BC, OTHER ==
[2019-08-22] MEDS ORDERED: HYDROmorphone 1 MG/ML Syringe IM ONE ×2 (11:25→12:56)
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
--- NOTE | 2019-08-22 12:39 | CR ---
Chest and right ribs: Frontal view of the chest was obtained as well as 4 views of the right ribs. Comparison: Prior chest x-ray of 11/15/16. Heart size and mediastinum are normal. Lungs are clear. Ribs show no discrete fracture or other bony abnormality. Impression: 1. No discrete right-sided rib abnormality is seen. 2. Nothing acute seen on accompanying chest x-ray. Diagnostic code #1 This report was dictated in MDT
[2019-08-22 13:15] VITALS: BP 140/92; PULSE 74
== END 2019-08-22 13:10 | disposition home or self-care (01) ==
LOC: JD.ED 10:59
DX: S20.211A Contusion of right front wall of thorax, initial encounter (principal); I10 Essential (primary) hypertension; E66.9 Obesity, unspecified; Z68.37 Body mass index [BMI] 37.0-37.9, adult; Z87.891 Personal history of nicotine dependence; W22.8XXA Striking against or struck by other objects, initial encounter
CPT/HCPCS: 71101; 96372; 99283; J1170